=== PATIENT | female | born 1935 | race Caucasian/White ===

== ENCOUNTER 2018-02-20 08:32 | Outpatient (CLI) | payer MEDICARE, OTHER ==
[~2018-02-20] VITALS: Ht 157.5 cm; Wt 51.4 kg
--- NOTE | ~2018-02-20 | HEMODYNAMI ---
PATIENT:JAIRO MORENO MEDICAL RECORD: [id number] : 35 LOCATION:[facility] ADMISSION DATE: 02/20/18 Generatedon:02/20/201810:28 Patient name: JAIRO MORENO Patient #: [id number] SSN: : 1935 Date of study: 02/20/2018 Page: Of Hemodynamic Procedure Report Patient Data Patient Demographics Procedure consent was obtained First Name: JAIRO Gender: Female Last Name: JOSH : 1935 [facility] Initial: MADAN Age: 82 year(s) Patient #: [id number] Race: Unknown Additional ID: [id number] Contact details [address]: [address] [place] [address] State: [place] City: [place] Zip code: [address] Past Medical History Allergies Allergen Reaction Date Comments Reported Codeine 02/20/2018 Amoxicillin 02/20/2018 Penicillins 02/20/2018 Admission Admission Data Admission Date: 02/20/2018 Admission Time: 8:32 Insurance Payor: Medicare Height (in.): 62 BSA: 1.5 (m2) Height (cm.): 157.48 BMI: 20.67 (kg/m2) Weight (lbs.): 113 Weight (kg.): 51.26 Lab Results Lab Result Date: 02/20/2018 Lab Result Time: 0:00 Biochemistry Name Units Result Min Max BUN mg/dl 11 --(-*--)-- 7 18 Creatinine mg/dl 0.9 --(-*--)-- 0.6 1.3 CBC Name Units Result Min Max Hemoglobin g/dl 13.6 --(*---)-- 13.5 17.5 Procedure Procedure Types Cath Procedure Diagnostic Procedure [facility] w/Coronaries PCI Procedure Coronary Stent Coronary Stent Initial Procedure Description Procedure Date Procedure Date: 02/20/2018 Procedure Start Time: 10:01 Procedure End Time: 10:27 Procedure Staff Name Function Teofilo Evans MD Performing Physician Arturo Esqueda RT Monitor Jonelle Falcon RT Scrub Anmol Castro RN Nurse Procedure Data Cath Procedure Fluoroscopy Diagnostic fluoroscopy Total fluoroscopy Time: 9.1 time: 9.1 min min Diagnostic fluoroscopy Total fluoroscopy dose: 480 dose: 480 mGy mGy Contrast Material Contrast Material Type Amount (ml) Isovue 300 117 Entry Location Entry Primary Successful Side Size Upsize Upsize Entry Closure Her ccessful Closure Location (Fr) 1 (Fr) 2 (Fr) Remarks Device Remarks Radial Right 6 Fr Mechanical artery Short Compression Estimated blood loss: 10 ml Diagnostic catheters Device Type Used For End Catheter Placement DIAGNOSTIC [place] 110cm 5 Procedure Fr catheter ([id number]) DIAGNOSTIC AR 2 MOD 5 Fr Procedure catheter ([id number]) Procedure Medications Medication Administration Route Dosage Oxygen etCO2 Nasal cannula 2 l/min Heparin Flush Bag added to field 2 bags (1000units/500ml NS) 0.9% NaCl I.V. 100 ml/hr Radial Cocktail added to field 1 syringe (Verapomil 2mg/Nitro 400mcg/Heparin 1500units) Plavix P.O. 75 mg Fentanyl I.V. 50 mcg Versed I.V. 1 mg Fentanyl I.V. 50 mcg Versed I.V. 1 mg Radial Cocktail I.A. 1 syringe (Verapomil 2mg/Nitro 400mcg/Heparin 1500units) Heparin Bolus I.V. 4000 units Fentanyl I.V. 50 mcg Hemodynamics Rest BSA: 1.5 (m2) HGB: 13.6 (g/dl) O2 Consumption: Estimated: 130.77 (ml/min) O2 Con sumption indexed: Estimated:87.18 (ml/min/m) Heart Rate: 64 (bpm) Pressure Samples Time Site Value (mmHg) Purpose Heart Use Rate(bpm) 10:07 LV 154/13,17 Snapshot 69 Snapshots Pre Cath Intra NCS Post Cath Vital Signs Time Heart Resp SPO2 etCO2 NIBP (mmHg) Rhythm Pain Sedation Rate (ipm) (%) (mmHg) Status Level (bpm) 9:46:14 65 16 100 0 180/75(146) NSR 0 (11) 10(A) , No pain 9:51:40 62 17 100 24.7 178/79(128) NSR 0 (11) 10(A) , No pain 9:56:10 66 17 100 10.5 172/68(123) NSR 0 (11) 10(A) , No pain 10:00:39 64 16 100 12.7 153/61(109) NSR 0 (11) 9(A) , No pain 10:04:59 65 17 100 30.8 127/59(97) NSR 0 (11) 9(A) , No pain 10:09:17 70 16 100 31.5 134/59(96) NSR 0 (11) 9(A) , No pain 10:13:37 71 17 100 31.5 143/64(98) NSR 0 (11) 9(A) , No pain 10:17:57 73 17 100 30 149/73(109) NSR 0 (11) 9(A) , No pain 10:22:15 75 17 100 30 160/76(111) NSR 0 (11) 9(A) , No pain 10:26:35 70 19 100 28.5 154/71(113) NSR 0 (11) 9(A) , No pain Medications Time Medication Route Dose Verified Delivered Reason Not es Effectiveness by by 9:49:47 Oxygen etCO2 2 l/min Teofilo Corea Per physician Nasal Nathan Castro RN cannula 9:49:55 Heparin Flush added 2 bags Teofilo Corea used for Bag to Nathan Castro RN procedure (1000units/500ml field NS) 9:50:04 0.9% NaCl I.V. 100 Teofilozachary Corea Per physician ml/hr Nathan Castro RN 9:50:11 Radial Cocktail added 1 Teofilo Corea used for (Verapomil to syringe Nathan Castro RN procedure 2mg/Nitro field 400mcg/Heparin 1500units) 9:50:23 Plavix P.O. 75 mg Teofilo Corea for Nathan Castro RN antiplatelet therapy 9:56:02 Fentanyl I.V. 50 mcg Teofilo Corea for sedation Nathan Castro RN 9:56:10 Versed I.V. 1 mg Teofilo Chávezy for sedation Nathan Castro RN 9:59:49 Fentanyl I.V. 50 mcg Teofilo Corea for sedation Nathan Castro RN 9:59:52 Versed I.V. 1 mg Teofilo Chávezy for sedation Ntahan Castro RN 10:02:42 Radial Cocktail I.A. 1 Teofilo Teofilo for (Verapomil syringe Nathan Evans MD vasodilation 2mg/Nitro 400mcg/Heparin 1500units) 10:10:31 Heparin Bolus I.V. 4000 Teofilo Corea for units Nathan Castro RN anticoagulation 10:17:54 Fentanyl I.V. 50 mcg Teofilo Corea for sedation Nathan Castro airplane pilot helper Log Time Note 9:22:38 Anmol Castro RN sent for patient. Start room use. 9:31:53 Diagnostic Cath Status : Elective 9:32:39 Time tracking: Regular hours (M-F 7:00 - 5:00) 9:32:43 Plan of Care:Hemodynamics will remain stable., Cardiac rhythm will remain stable., Comfort level will be maintained., Respiratory function will remain adequate., Patient/ family verbilizes understanding of procedure., Procedure tolerated without complication., Recovers from procedure without complications.. 9:36:09 H&P Date Dictated: 02/09/2018 Within 30 days and on chart., H&P Addendum completed by physician on day of procedure. (MUST COMPLETE FOR ALL OUTPATIENTS). 9:39:13 Lab Result : BUN 11 mg/dl 9:39:13 Lab Result : Hemoglobin 13.6 g/dl 9:39:13 Lab Result : Creatinine 0.9 mg/dl 9:39:25 Patient received from Pre/Post Procedure Room to [facility] 3 Alert and oriented. Tansferred to table in Supine position. 9:39:27 Warm blankets applied, and leticia hugger turned on for patient comfort. 9:39:28 Correct patient and procedure confirmed by team. 9:39:31 Signed procedure consent form obtained from patient. 9:44:53 Vital chart was started 9:49:47 Oxygen 2 l/min etCO2 Nasal cannula was administered by Anmol Castro RN; Per physician; 9:49:55 Heparin Flush Bag (1000units/500ml NS) 2 bags added to field was administered by Anmol Castro RN; used for procedure; 9:49:59 Baseline sample Acquired. 9:50:04 0.9% NaCl 100 ml/hr I.V. was administered by Anmol Castro RN; Per physician; 9:50:04 Rhythm: sinus rhythm 9:50:07 Full Disclosure recording started 9:50:11 Radial Cocktail (Verapomil 2mg/Nitro 400mcg/Heparin 1500units) 1 syringe added to field was administered by Anmol Castro RN; used for procedure; 9:50:20 Pre-procedure instructions explained to patient. 9:50:21 Pre-op teaching completed and patient verbalized understanding. 9:50:23 Plavix 75 mg P.O. was administered by Anmol Castro RN; for antiplatelet therapy; 9:50:27 Family in waiting room. 9:50:30 Patient NPO since Midnight. 9:50:43 Patient allergic to Codeine 9:50:48 Patient allergic to Amoxicillin 9:50:54 Patient allergic to Penicillins 9:51:01 Is the patient allergic to Iodine/contrast media? No. 9:51:03 Is patient on blood thinner?Yes 9:51:07 ACC The patient was administered the following blood thiners within the last 24 hours: ACCPlavix 9:51:14 Patient diabetic? No. 9:51:17 Patient not . Patient is over age 55. 9:51:18 ----Pre-sedation anethsthesia assessment.---- 9:51:21 Previous problem with sedation/anesthesia? No ? 9:51:24 Snore? No 9:51:25 Sleep apnea? No 9:51:27 Deviated septum? No 9:51:28 Opens mouth fully? Yes 9:51:29 Sticks out tongue? Yes 9:51:35 Airway obstruction? Yes COPD 9:51:44 Dentures? Yes IN TIGHT 9:51:48 Pre procedure: right dorsailis pedis pulse 2+ Normal; easily identifiable; not easily obliterated 9:51:52 Modified Irineo's test Ulnar < 7 seconds 9:51:55 Patient pain scale 0/10 ?. 9:52:16 IV patent on arrival in left forearm with 0.9% NaCl at O. 9:52:19 Lab results completed and on chart. 9:52:24 Right Radial & Right Groin area was prepped with chlora-prep and draped in sterile fashion 9:52:25 Alarms reviewed by R. N. 9:52:26 Sharps counted by scrub and verified by R.N. 9:52:45 Patient Height : 62 inches 9:52:48 Patient Weight : 113 lbs 9:52:58 Insurance Payor : Medicare 9:55:36 Physician arrived 9:55:38 --------ALL STOP TIME OUT------ 9:55:39 Final Timeout: patient, procedure, and site verified with staff and physician. All members of the team are in agreement. 9:55:44 Right Radial & Right Groin site verified by team. 9:55:47 Physical assessment completed. ASA score P 2 - A patient with mild systemic disease as per Teofilo Evans MD. 9:55:51 Sedation plan: IV Moderate Sedation Medication:Versed, Fentanyl 9:56:02 Fentanyl 50 mcg I.V. was administered by Anmol Castro RN; for sedation; 9:56:08 Use device set Radial Dx or PCI 9:56:10 Versed 1 mg I.V. was administered by Anmol Castro RN; for sedation; 9:56:10 ACIST Syringe (01924) opened to sterile field. 9:56:11 Medline Cath Pack ([id number]) opened to sterile field. 9:56:12 Bag Decanter (2002S) opened to sterile field. 9:56:13 DIAGNOSTIC WIRE .035 260cm J wire (924463) opened to sterile field. 9:56:13 ACIST Hand Control (98177) opened to sterile field. 9:56:14 ACIST Manifold (29083) opened to sterile field. 9:56:15 Tegaderm 4 x 4 (1626W) opened to sterile field. 9:56:16 MBrace Wrist Support ([id number]) opened to sterile field. 9:56:20 TR BAND Standard ([id number]) opened to sterile field. 9:56:23 SHEATH 6Fr Prelude Radial ([id number]) opened to sterile field. 9:59:49 Fentanyl 50 mcg I.V. was administered by Anmol Castro RN; for sedation; 9:59:52 Versed 1 mg I.V. was administered by Anmol Castro RN; for sedation; 10:01:14 Procedure started. 10:01:21 Local anesthetic to right radial artery with Lidocaine 2% by Teofilo Evans MD.INITIAL ACCESS ONLY 10:02:15 A 6 Fr Short sheath was inserted into the Right Radial artery 10:02:41 TEGADERM APPLIED 10:02:42 Radial Cocktail (Verapomil 2mg/Nitro 400mcg/Heparin 1500units) 1 syringe I.A. was administered by Teofilo Evans MD; for vasodilation; 10:03:13 A DIAGNOSTIC [place] 110cm 5 Fr catheter ([id number]) was advanced over the wire and used for Procedure. 10:04:02 LCA angiography performed. 10:06:15 Zero performed for pressure channel P1 10:06:17 Zero performed for pressure channel P1 10:06:20 Zero performed for pressure channel P1 10:06:22 Zero performed for pressure channel P1 10:06:24 Zero performed for pressure channel P1 10::27 Zero performed for pressure channel P1 10:06:30 Zero performed for pressure channel P1 10:06:59 Zero performed for pressure channel P1 10:07:25 LV gram done using MURCIA 10:07:35 EF : 55 % 10:07:38 LV hemodynamics recorded. 10:07:40 Catheter removed. 10:08:04 A DIAGNOSTIC AR 2 MOD 5 Fr catheter ([id number]) was advanced over the wire and used for Procedure. 10:08:47 RCA angiography performed. 10:09:02 GUIDE 6FR AR 1.0 SH catheter ([id number]) opened to sterile field. 10:09:05 CHOICE PT Extra Support 182cm wire ([id number]) opened to sterile field. 10:09:06 INFLATOR Merit BasixCompak (QO0738) opened to sterile field. 10:09:16 Catheter removed. 10:09:17 Proceeding to intervention. 10:09:48 RCA 10:09:58 6 Fr AR 1 SH guide catheter was inserted over the wire 10:10:31 Heparin Bolus 4000 units I.V. was administered by Anmol Castro RN; for anticoagulation; 10:11:23 Guide Catheter removed. unable to cannulate vessel. 10:11:40 GUIDE 6FR HS I SH catheter ([id number]) opened to sterile field. 10:12:03 6 Fr HS 1 SH guide catheter was inserted over the wire 10:12:43 CHOICE wire advanced. 10:13:20 Wire advanced across lesion. 10:14:50 Inflate balloon Inflation number: 1 A EUPHORA 2.5 x 20 Balloon ([id number]) was prepped and advanced across the Dist RCA, then inflated to 13 ALAN for 0:10 (min:sec). 10:15:03 MULTIPLE INFLATIONS WHOLE VESSEL 10:16:09 Inflation number: 1 The EUPHORA 2.5 x 20 Balloon ([id number]) was reinflated across the Prox RCA, to 17 ALAN for 0:10 (min:sec). 10:16:26 Balloon removed over the wire. 10:16:52 Procedure type changed to Cath procedure, Diagnostic procedure, LHC, LHC w/Coronaries, PCI procedure, Coronary Stent, Coronary Stent Initial 10:17:43 Place stent Inflation Number: 2 A ANNI RX 2.5 x 38 stent ([id number]) was prepped and advanced across the Dist RCA. The stent was deployed at 17 ALAN for 0:10 (min:sec). 10:17:54 Fentanyl 50 mcg I.V. was administered by Anmol Castro RN; for sedation; 10:18:12 Stent catheter was removed intact over wire. 10:19:53 Place stent Inflation Number: 2 A ANNI RX 2.5 x 34 stent ([id number]) was prepped and advanced across the Prox RCA. The stent was deployed at 19 ALAN for 0:10 (min:sec). 10:20:20 Stent catheter was removed intact over wire. 10:20:20 Wire removed. 10:20:22 Guide catheter removed. 10:20:40 Sheath removed intact; hemostasis achieved with Mechanical Compression to the Right Radial artery. 10:20:45 Procedure ended.(Physican Out) 10:20:54 Fluoroscopy time 09.10 minutes. 10:23:41 Fluoroscopy dose: 480 mGy 10:23:41 Flurop Dose total: 480 10:23:52 Contrast amount:Isovue 300 117ml. 10:23:57 Sharps counted by scrub and verified by R.N. 10:24:42 TR band inflated with 13cc of air. 10:24:44 Insertion/operative site no bleeding no hematoma. 10:24:49 Post right radial artery:stable 10:24:52 Post Procedure Pulses reassessed and unchanged 10:24:56 Post-procedure physical assessment completed. ASA score P 2 - A patient with mild systemic disease as per Teofilo Evans MD. 10:25:03 Post procedure rhythm: sinus rhythm 10:25:06 Estimated blood loss: 10 ml 10:25:09 Post procedure instruction explained to patient.Patient verbalizes understanding. 10:25:10 Patient needs reinforcement of post procedure teaching. 10:25:45 Procedure and supply charges have been captured, reviewed, submitted and are correct. 10:27:13 Vital chart was stopped 10:27:14 See physician's report for complete and final results. 10:27:21 Report given to Pre/Post Procedure Room. 10:27:26 Patient transfered to Pre/Post Procedure Room with Stretcher. 10:27:47 Procedure ended. 10:27:47 Full Disclosure recording stopped 10:27:53 End room use (Document Last) Intervention Summary Intervention Notes Time ActionType Lesion and Equipment Used Action# Pressure Duration Attributes 10:14:50 Inflate Dist RCA EUPHORA 2.5 x 1 13 00:10 balloon 20 Balloon ([id number]) 10:16:09 Reinflate Prox RCA EUPHORA 2.5 x 1 17 00:10 balloon 20 Balloon ([id number]) 10:17:43 Place stent Dist RCA ANNI RX 2.5 x 2 17 00:10 38 stent ([id number]) 10:19:53 Place stent Prox RCA ANNI RX 2.5 x 2 19 00:10 34 stent ([id number]) Device Usage Item Name Manufacture Quantity Catalog Number Hospital Part Current Minimal Lot# / Charge Number Stock Stock Serial# Code ACIST Syringe Acist 1 26450 893886 082516 582515 20 (19857) Medical Systems Inc Medline Cath Cardinal 1 [id number] 391102 14728 404863 5 Pack Health ([id number]) Bag Decanter Microtek 1 2001S 822855 39972 075112 5 () Medical Inc. DIAGNOSTIC WIRE St Jeff 1 877291 113864 699105 001933 30 .035 260cm J wire (724237) ACIST Hand Acist 1 73392 637023 590569 482116 5 Control (28009) [employer] Systems Inc ACIST Manifold Acist 1 77527 720718 770270 574797 5 (68387) Medical Systems Inc Tegaderm 4 x 4 3M 1 1626W 655971 399715 241180 5 (1626W) MBrace Wrist Advanced 1 140-0250-00 197883 18648 411610 5 Support Vascular (201518919) Dynamics TR BAND Terumo 1 HGQ51-AAT 642745 861939 497101 40 Standard ([id number]) SHEATH 6Fr Merit 1 [id number] 389429 010444 752405 5 Prelude Radial Medical ([id number]) DIAGNOSTIC Terumo 1 40-5013 599515 592223 827245 5 [place] 110cm 5 Fr catheter (172652) DIAGNOSTIC AR 2 Cardinal 1 [id number] 005112 331255 039308 20 MOD 5 Fr Health catheter (441902P) GUIDE 6FR AR Medtronic 1 [id number] 944967 22554 936783 1 1.0 SH catheter ([id number]) CHOICE PT Extra [place] 1 [id number] 082996 399120 338492 5 Support 182cm Scientific wire ([id number]) INFLATOR Merit Merit 1 KV1015 798726 393902 973997 15 BasixCompak Medical (DY6962) GUIDE 6FR HS I Medtronic 1 [id number] 614875 87256 610105 1 SH catheter ([id number]) EUPHORA 2.5 x Medtronic 1 [id number] 123206 109087 122384 5 [id number] 20 Balloon ([id number]) ANNI RX 2.5 x Medtronic 1 [id number] 654590 8200126 037814 5 [id number] 38 stent ([id number]) ANNI RX 2.5 x Medtronic 1 [id number] 531752 0380471 788645 5 [id number] 34 stent ([id number]) Signature Audit [place] Stage Time Signature Unsigned Intra-Procedure 02/20/2018 Arturo Esqueda 10:28:19 AM RT(R) (CV) Signatures Monitor : Arturo Esqueda RT Signature : Date : Time : [facility] [address] [place] [address]
--- NOTE | ~2018-02-20 | OP ---
PATIENT NAME: JAIRO MORENO MEDICAL RECORD: [id number] :35 LOCATION:D.CAT ADMISSION DATE: SURGEON: NORMA CARDOZO MD DATE OF OPERATION: 02/20/2018 PROCEDURES: 1. PTCA stent RCA. 2. Left heart catheterization. 3. Selective coronary angiography. 4. Left ventriculogram. INDICATION: Angina and coronary artery disease. PROCEDURE IN DETAIL: After informed consent was obtained and after a detailed description of the risks, benefits as well as alternative therapies, the patient elected to proceed with angiogram and angioplasty. The right radial area was prepped and draped in normal sterile fashion. Right radial artery was cannulated via modified Seldinger technique with placement of 6-Latvian sheath. All catheters exchanged through this sheath. FINDINGS: Left ventriculogram was performed in standard 30-degree MURCIA view, reveals good cardiac wall motion throughout all segments. Overall ejection fraction 55% to 60%. SELECTIVE CORONARY ANGIOGRAPHY: 1. Left main is with no significant angiographic disease. 2. Left anterior descending has greater than 70% stenosis proximally greater than 80% stenosis in the mid vessel. 3. The left circumflex has wexy-ir-qareonux irregularities, but no discrete flow-limiting stenosis. 4. The right coronary artery has multiple areas of 90% to 95% stenosis. MOTORBOAT MECHANIC INBOARD STENT OF THE RIGHT CORONARY ARTERY: Stents used were 2.5 x 38 and 2.5 x34, both Lm stents. Result was 0% residual stenosis. OVERALL IMPRESSION: Successful percutaneous transluminal coronary angioplasty stent of the right coronary artery going from multiple areas of 90% to 95% initial stenosis to 0% residual. PLAN: PTCA stent of the LAD in the near future. TRANSINT:[id number] Voice Confirmation ID: [id number] DOCUMENT ID: [id number] NORMA CARDOZO MD at 1230 CC: [id number] DICTATION DATE: 02/20/18 1030 [place] OPERATOR: 02/20/18 1121 DEP CLI 02/20/18 [place] [id number]
[2018-02-20] MEDS ORDERED: CREON (PANCRELI1 CAP PO (08:48)
[2018-02-20] MEDS ORDERED: ISOSORBIDE MONO30 M1 PO (08:49)
[2018-02-20] MEDS ORDERED: PLAVIX75 MG PO ×3 (08:49→10:45)
[2018-02-20] MEDS ORDERED: NORVASC5 MG PO (08:50)
[2018-02-20] MEDS ORDERED: COREG6.25 MG PO (08:50)
[2018-02-20] MEDS ORDERED: HYDROCODONE-APA1 TAB PO (08:51)
[2018-02-20] MEDS ORDERED: OMEPRAZOLE20 M1 PO (08:52)
[2018-02-20] MEDS ORDERED: BAYER CHEWABLE81 MG PO (08:53)
[2018-02-20] MEDS ORDERED: TRAZODONE HCL50 MG PO (08:54)
[2018-02-20 09:05] VITALS: BP 183/66; Ht 157.5 cm; Wt 51.4 kg
[2018-02-20 09:16] LABS: BASOPHILS 0.4 % (0-2); HEMATOCRIT 40.2 % (36.0-48.0); HEMOGLOBIN 13.6 g/dL (12-16); IMMATURE GRANULOCYTES 0.1 % (0-5); LYMPHOCYTES 28.8 % (15-50); MCHC 33.8 g/dL (31.0-37.0); MCV 91.6 fL (80.0-100.0); MEAN PLATELET VOLUME 9.1 fL (7.4-10.4); MONOCYTES 10.3 % (2-11); NEUTROPHILS 57.4 % (40-80); PLATELET COUNT 270 10x3/uL (130-400); RBC 4.39 10x6/uL (4.00-5.40); RDW 15.4 % (11.5-14.5)
[2018-02-20 09:26] LABS: ANION GAP 10.9 mmol/L (8-16); CALCIUM 9.7 mg/dL (8.5-10.1); CARBON DIOXIDE 27.1 mmol/L (21.0-32.0); CREATININE - SERUM 0.9 mg/dL (0.6-1.3)
== END 2018-02-20 14:45 ==
LOC: D.CATH 08:32
PROVIDERS: Internal Medicine Interventional Cardiology
DX: I25.119 Atherosclerotic heart disease of native coronary artery with unspecified angina pectoris (principal); Z01.812 Encounter for preprocedural laboratory examination
CPT/HCPCS: 93458; C9600

== ENCOUNTER 2018-02-27 08:10 | Outpatient (CLI) | payer MEDICARE, OTHER ==
[~2018-02-27] VITALS: Ht 157.5 cm; Wt 50.0 kg
--- NOTE | ~2018-02-27 | HEMODYNAMI ---
PATIENT:JAIRO MORENO MEDICAL RECORD: [id number] : 35 [id number] ADMISSION DATE: 02/27/18 Generatedon:02/28/201812:42 Patient name: JAIRO MORENO Patient #: [id number] SSN: : 1935 Date of study: 02/28/2018 Page: Of Hemodynamic Procedure Report Patient Data Patient Demographics Procedure consent was obtained First Name: JAIRO Gender: Female Last Name: JOSH : 1935 Middle Initial: MADAN Age: 82 year(s) Patient #: [id number] Race: Unknown Additional ID: [id number] Contact details [address]: [address] [place] [address] State: [place] City: [place] Zip code: [address] Past Medical History Allergies Allergen Reaction Date Comments Reported Codeine 02/20/2018 Amoxicillin 02/20/2018 Penicillins 02/20/2018 Other allergy 02/27/2018 AMOXICILLIN, CODEINE, PCN Other allergy 02/28/2018 Codeine. PCN, Amoxicillin Admission Admission Data Admission Date: 02/27/2018 Admission Time: 8:10 Room #: [facility] Height (in.): 5.2 BSA: 0.25 (m2) Height (cm.): 13.21 BMI: 2938.12 (kg/m2) Weight (lbs.): 113 Weight (kg.): 51.26 Lab Results Lab Result Date: 02/28/2018 Lab Result Time: 0:00 Biochemistry Name Units Result Min Max BUN mg/dl 11 --(-*--)-- 7 18 Creatinine mg/dl 0.7 --(*---)-- 0.6 1.3 CBC Name Units Result Min Max Hemoglobin g/dl 13.5 --(*---)-- 13.5 17.5 Procedure Procedure Types Cath Procedure Diagnostic Procedure Sedation Charges Moderate Sedation up to 15 minutes PCI Procedure Coronary Stent Coronary Stent Initial Procedure Description Procedure Date Procedure Date: 02/28/2018 Procedure Start Time: 12:15 Procedure End Time: 12:36 Procedure Staff Name Function Teofilo Evans MD Performing Physician Faviola Mccracken RT Monitor Hui Lopez RT Scrub Alma Rosa Garcia RN Nurse Procedure Data Cath Procedure Fluoroscopy Diagnostic fluoroscopy Total fluoroscopy Time: time: 10.7 min 10.7 min Diagnostic fluoroscopy Total fluoroscopy dose: 794 dose: 794 mGy mGy Contrast Material Contrast Material Type Amount (ml) Isovue 300 62 Entry Location Entry Primary Successful Side Size Upsize Upsize Entry Closure Succes sful Closure Location (Fr) 1 (Fr) 2 (Fr) Remarks Device Remarks Femoral Right 6 Fr Exoseal artery Short Estimated blood loss: 10 ml Procedure Complications No complications Procedure Medications Medication Administration Route Dosage Oxygen NC 2 l/min Lidocaine 2% added to field 20 Heparin Flush Bag added to field 2 bags (1000units/500ml NS) 0.9% NaCl I.V. 100 ml/hr Versed I.V. 1 mg Fentanyl I.V. 50 mcg Heparin Bolus I.V. 4000 units Versed I.V. 1 mg Fentanyl I.V. 50 mcg Versed I.V. 1 mg Fentanyl I.V. 50 mcg Plavix P.O. 75 mg Hemodynamics Rest BSA: 0.25 (m2) HGB: 13.5 (g/dl) O2 Consumption: Estimated: 22.04 (ml/min) O2 Con sumption indexed: Estimated:88.16 (ml/min/m) Heart Rate: 67 (bpm) Snapshots Pre Cath Intra NCS Post Cath Vital Signs Time Heart Resp SPO2 etCO2 NIBP (mmHg) Rhythm Pain Sedation Rate (ipm) (%) (mmHg) Status Level (bpm) 12:00:36 64 18 99 27.7 175/77(125) NSR 0 (11) 10(A) , No pain 12:07:38 63 21 98 25.5 170/65(131) NSR 0 (11) 10(A) , No pain 12:12:06 62 16 96 0 133/63(107) NSR 0 (11) 10(A) , No pain 12:17:32 61 15 98 29.2 152/64(118) NSR 0 (11) 10(A) , No pain 12:21:54 61 12 98 27.7 138/62(109) NSR 0 (11) 9(A) , No pain 12:26:12 60 17 98 27.7 131/54(105) NSR 0 (11) 9(A) , No pain 12:30:26 61 15 98 28.5 138/60(107) NSR 0 (11) 9(A) , No pain 12:34:38 65 20 98 30 153/70(120) NSR 0 (11) 10(A) , No pain Medications Time Medication Route Dose Verified Delivered Reason Notes Effectiveness by by 11:54:43 Oxygen NC 2 Teofilo Buffie used for l/min Nathan Garcia RN procedure 11:54:51 Lidocaine 2% added 20ml Teofilo Teofilo for local to vial Nathan Evans MD anesthetic field 11:54:58 Heparin Flush added 2 Teofilo Teofilo used for Bag to bags Nathan Evans MD procedure (1000units/500ml field NS) 11:55:07 0.9% NaCl I.V. 100 Teofilo Buffie Per physician ml/hr Nathan Garcia RN 12:15:01 Fentanyl I.V. 50 Teofilo Buffie for sedation mcg Nathan Garcia RN 12:15:01 Versed I.V. 1 mg Teofilo Buffie for sedation Nathan Garcia RN 12:15:53 Heparin Bolus I.V. 4000 Teofilo Buffie for verifi ed units Nathan Garcia RN anticoagulation with dr evans 12:18:23 Versed I.V. 1 mg Teofilo Buffie for sedation Nathan Garcia RN 12:18:26 Fentanyl I.V. 50 Teofilo Buffie for sedation mcg Nathan Garcia RN 12:28:53 Versed I.V. 1 mg Teofilo Buffie for sedation Nathan Garcia RN 12:28:57 Fentanyl I.V. 50 Teofilo Buffie for sedation mcg Nathan Garcia RN 12:35:40 Plavix P.O. 75 mg Teofilo Hiltonie for Nathan Garcia RN antiplatelet therapy Procedure Log Time Note 11:31:49 Signed procedure consent form obtained from patient. 11:31:51 Time tracking: Regular hours (M-F 7:00 - 5:00) 11:31:54 Plan of Care:Hemodynamics will remain stable., Cardiac rhythm will remain stable., Comfort level will be maintained., Respiratory function will remain adequate., Patient/ family verbilizes understanding of procedure., Procedure tolerated without complication., Recovers from procedure without complications.. 11::56 Patient Height : 5.2 inches 11::56 Patient Weight : 113 lbs 11:33:07 Lab Result : Creatinine 0.7 mg/dl 11:33:07 Lab Result : BUN 11 mg/dl 11:33:07 Lab Result : Hemoglobin 13.5 g/dl 11:38:03 Alma Rosa Garcia RN sent for patient. Start room use. 11:46:35 Patient received from Med II to CCL 2 Alert and oriented. Tansferred to table in Supine position. 11:46:36 Warm blankets applied, and leticia hugger turned on for patient comfort. 11:46:36 Correct patient and procedure confirmed by team. 11:46:38 ECG and BP/O2 sat monitors applied to patient. 11:54:43 Oxygen 2 l/min NC was administered by Alma Rosa Garcia RN; used for procedure; 11:54:51 Lidocaine 2% 20ml vial added to field was administered by Teofilo Evans MD; for local anesthetic; 11:54:58 Heparin Flush Bag (1000units/500ml NS) 2 bags added to field was administered by Teofilo Evans MD; used for procedure; 11:55:07 0.9% NaCl 100 ml/hr I.V. was administered by Alma Rosa Garcia RN; Per physician; 11:55:12 Vital chart was started 11:56:13 Baseline sample Acquired. 11:56:20 Full Disclosure recording started 11:56:26 H&P Date Dictated: 02/28/2018 Within 30 days and on chart.. 11:56:28 Pre-procedure instructions explained to patient. 11:56:34 Family in waiting room. 11:56:36 Patient NPO since Midnight. 11:57:08 Patient allergic to Other allergyCodeine. PCN, Amoxicillin 11:57:12 Was the patient premedicated? Yes 11:57:16 Is patient on blood thinner?Yes 11:57:23 ACC The patient was administered the following blood thiners within the last 24 hours: ACCPlavix 11:57:33 Patient diabetic? No. 11:57:36 If diabetic: On Metformin? No 11:57:41 Snore? No 11:57:42 Sleep apnea? No 11:57:48 Airway obstruction? Yes COPD 11:57:56 Dentures? Yes in tight 11:58:01 Patient pain scale 0/10 ?. 11:58:08 IV patent on arrival in left hand with 0.9% NaCl at [facility]. 11:58:15 Lab results completed and on chart. 11:58:19 Right groin area was prepped with chlora-prep and draped in sterile fashion 11:58:20 Alarms reviewed by R. N. 11:58:21 Sharps counted by scrub and verified by R.N. 11:58:22 Physician paged 12:05:19 Zero performed for pressure channel P1 12:05:27 Zero performed for pressure channel P1 12:08:50 GUIDE 6FR XBLAD 3.5 catheter ([id number]) opened to sterile field. 12:09:01 Use device set TAUTH PCI 12:09:09 INFLATOR Merit BasixCompak (XN4177) opened to sterile field. 12:09:31 CHOICE PT Extra Support 182cm wire ([id number]) opened to sterile field. 12:09:41 EXOSEAL 6Fr (EX600) opened to sterile field. 12:09:46 SHEATH Prelude 6Fr 0.035 (NTR-2L-38-035) opened to sterile field. 12:09:53 Use device set IR Diagnostic 12:10:01 ACIST Syringe (90821) opened to sterile field. 12:10:02 ACIST Hand Control (89809) opened to sterile field. 12:10:03 ACIST Manifold (22546) opened to sterile field. 12:10:06 Bag Decanter (2002S) opened to sterile field. 12:10:09 Sterile Angiographic Pack opened to sterile field. 12:10:11 Tegaderm 4 x 4 (1626W) opened to sterile field. 12:14:56 Physician arrived 12::57 --------ALL STOP TIME OUT------ 12:14:58 Final Timeout: patient, procedure, and site verified with staff and physician. All members of the team are in agreement. 12:14:59 Right groin site verified by team. 12:15:01 Fentanyl 50 mcg I.V. was administered by Alma Rosa Garcia RN; for sedation; 12:15:01 Versed 1 mg I.V. was administered by Alma Rosa Garcia RN; for sedation; 12:15:06 Sedation plan: IV Moderate Sedation Medication:Versed, Fentanyl 12:15:12 Procedure started. 12:15:24 Local anesthetic to right femoral artery with Lidocaine 2% by Teofilo Evans MD.INITIAL ACCESS ONLY 12:15:32 A 6 Fr Short sheath was inserted into the Right Femoral artery 12:15:53 Heparin Bolus 4000 units I.V. was administered by Alma Rosa Garcia RN; for anticoagulation; verified with dr evans 12:17:15 6 Fr XBLAD3.5 guide catheter was inserted over the wire 12:17:23 pt graphics wire advanced. 12:18:23 Versed 1 mg I.V. was administered by Alma Rosa Garcia RN; for sedation; 12:18:26 Fentanyl 50 mcg I.V. was administered by Alma Rosa Garcia RN; for sedation; 12:18:42 CHOICE PT Extra Support J 300cm guide wire ([id number]) opened to sterile field. 12:23:44 unable to cross with wire and stent. Super cross advanced 12:23:49 WHISPER 300cm guide wire ([id number]) opened to sterile field. 12:28:53 Versed 1 mg I.V. was administered by Alma Rosa Garcia RN; for sedation; 12:28:57 Fentanyl 50 mcg I.V. was administered by Alma Rosa Garcia RN; for sedation; 12:32:08 Super Cross removed 12:33:13 Place stent Inflation Number: 1 A ANNI OTW 2.25 x 22 stent ([id number]) was prepped and advanced across the Mid LAD. The stent was deployed at 19 ALAN for 0:08 (min:sec). 12:33:58 Wire removed. 12:33:59 Guide catheter removed. 12:34:08 Sheath removed intact; hemostasis achieved with Exoseal to the Right Femoral artery. 12:34:14 Procedure ended.(Physican Out) ::34 Fluoroscopy dose: 794 mGy 12::34 Flurop Dose total: 794 12:34:43 Fluoroscopy time 10.70 minutes. 12:34:56 Contrast amount:Isovue 300 62ml. 12:35:10 Insertion/operative site no bleeding no hematoma. 12:35:15 Post right femoral artery:stable 12:35:20 Post Procedure Pulses reassessed and unchanged 12:35:29 Post procedure rhythm: unchanged. 12:35:32 Estimated blood loss: 10 ml 12:35:34 Post procedure instruction explained to patient.Patient verbalizes understanding. 12:35:40 Plavix 75 mg P.O. was administered by Alma Rosa Garcia RN; for antiplatelet therapy; 12:35:48 Patient needs reinforcement of post procedure teaching. 12:36:01 Procedure type changed to Cath procedure, Diagnostic procedure, Sedation Charges, Moderate Sedation up to 15 minutes, PCI procedure, Coronary Stent, Coronary Stent Initial 12:36:02 Procedure and supply charges have been captured, reviewed, submitted and are correct. 12:36:33 Procedure Complication : No complications 12:36:36 Vital chart was stopped 12:36:36 See physician's report for complete and final results. 12:36:39 Report given to Pre/Post Procedure Room. 12:36:42 Patient transfered to Pre/Post Procedure Room with Stretcher. 12:36:45 Procedure ended. 12:36:45 Full Disclosure recording stopped 12:36:48 End room use (Document Last) 12:37:35 ACC-PCI Only Patient was given prescriptions, or instructed by Teofilo Evans MD to start/continue the following medications upon discharge: Plavix Intervention Summary Intervention Notes Time ActionType Lesion and Equipment Action# Pressure Duration Attributes Used 12:33:13 Place stent Mid LAD ANNI OTW 2.25 1 19 00:08 x 22 stent ([id number]) Device Usage Item Name Manufacture Quantity Catalog Number Hospital Part Current Minimal Lot# / Charge Number Stock Stock Serial# Code GUIDE 6FR XBLAD Cardinal 1 [id number] 679405 591886 505668 10 3.5 catheter [employer] ([id number]) INFLATOR Merit Merit 1 [id number] 791335 072839 782755 15 Razor Insights (DL6743) CHOICE PT Extra Friendship 1 [id number] 364931 426694 798732 5 Support 182cm Scientific wire (2689555S5) EXOSEAL 6Fr Cardinal 1 EX600 537967 119390 317639 10 (EX600) Health SHEATH Prelude Merit 1 KDX-3Y-34-35 808570 6994509 225040 5 6Fr 0.035 Medical (FLE-0M-95-035) ACIST Syringe Acist 1 20131 076009 096403 110380 20 (29752) Medical Systems Inc ACIST Hand Acist 1 87039 287947 045272 706411 5 Control (25603) Medical Systems Inc ACIST Manifold Acist 1 84562 260190 908825 857762 5 (64545) Medical Systems Inc Bag Decanter Microtek 1 2002S 955935 64019 557556 5 (2001S) Medical Inc. Sterile Cardinal 1 [id number] 105367 996444 5 Angiographic Health Pack Tegaderm 4 x 4 3M 1 1626W 512075 992630 007562 5 (1626W) CHOICE PT Extra Friendship 1 [id number] 025273 304291 790476 5 Support J 300cm Scientific guide wire (6971205R6) WHISPER 300cm Diamond 1 [id number] 974438 787025 734420 5 guide wire Vascular (2666528CH) ANNI OTW 2.25 x Medtronic 1 [id number] 295764 13797 691151 5 [id number] 22 stent ([id number]) Signature Audit [place] Stage Time Signature Unsigned Intra-Procedure 02/28/2018 Hui Lopez 12:41:55 PM RT(R) Signatures Monitor : Faviola Mccracken Signature : RT Date : Time : [address] [address]
--- NOTE | ~2018-02-27 | OP ---
PATIENT NAME: JAIRO MORENO MEDICAL RECORD: [id number] :35 LOCATION:D.CAT ADMISSION DATE: SURGEON: NORMA CARDOZO MD DATE OF OPERATION: 02/27/2018 PROCEDURES: 1. PTCA stent left circumflex. 2. Intravascular ultrasound, left circumflex. 3. Intravascular ultrasound, left main. 4. Selective coronary angiography. INDICATION: Angina and coronary artery disease. PROCEDURE IN DETAIL: After informed consent was obtained and after detailed explanation of risks, benefits as well as alternative therapies, the patient elected to proceed with angiogram and angioplasty. The right radial area was prepped and draped in normal sterile fashion. Right radial artery was cannulated via modified Seldinger technique with placement of 6-Greek sheath. All catheters exchanged through this sheath. FINDINGS: The left circumflex has 75% stenosis confirmed by intravascular ultrasound. The left main is not significantly stenosed confirmed by intravascular ultrasound. We addressed the left circumflex with a 3.5 x 12 mm [place]. Result was 0% residual stenosis. OVERALL IMPRESSION: Successful percutaneous transluminal coronary angioplasty stent of the left circumflex going from 75% initial stenosis to 0% residual stenosis. TRANSINT:[id number] Voice Confirmation ID: [id number] DOCUMENT ID: [id number] NORMA CARDOZO MD at 1325 CC: [id number] DICTATION DATE: 02/27/18 1013 TATTOO AND BODY ARTIST: 02/27/18 1128 [facility] CLI 02/28/18 [place] [address]
--- NOTE | ~2018-02-27 | DS ---
PATIENT:AJIRO MORENO :35 MEDICAL RECORD: [id number] DISCHARGE SUMMARY ADMISSION DATE: 02/27/18 DISCHARGE DATE: 02/28/18 DISCHARGE DIAGNOSES: 1. Angina. 2. Coronary artery disease. 3. Percutaneous transluminal coronary angioplasty stent left anterior descending and left circumflex this admission. HOSPITAL COURSE: Ms. Moreno presents with anginal symptomatology, found to have 2-vessel coronary artery disease of the LAD and circumflex, underwent successful PTCA stent of both territories, was discharged home with no change in her medications as she is already on aspirin and Plavix. She will follow up with [facility] in 1 month. TRANSINT:[id number] Voice Confirmation ID: [id number] DOCUMENT ID: [id number] NORMA CARDOZO MD at 1325 CC: [id number] DICTATION DATE: 02/28/18 1237 SPA DIRECTOR/FINANCE: 02/28/18 1251 [facility]P CLI 02/28/18 [place] [address] [place] [address]
--- NOTE | ~2018-02-27 | HP ---
PATIENT: JAIRO MORENO MEDICAL RECORD: [id number] ACCOUNT: [id number] LOCATION:[facility] : 35 ADMISSION DATE: 02/27/18 HISTORY AND PHYSICAL EXAMINATION ADMITTING DIAGNOSES: 1. Anginal symptomatology. 2. Coronary artery disease. 3. Recent percutaneous transluminal coronary angioplasty and stent of the right coronary artery with concomitant disease to the left anterior descending. HISTORY OF PRESENT ILLNESS: Ms. Moreno presents with anginal symptomatology, found to have significant disease to the RCA and LAD, underwent successful PTCA and stent of the RCA, now brought back for PTCA and stent of the LAD. PHYSICAL EXAMINATION: GENERAL APPEARANCE: Well nourished, well developed, appears stated age. Level of distress, comfortable. PSYCHIATRIC: Mental status, alert, normal affect. Orientation, oriented to time, place and person. EYES: Lids and conjunctivae, noninjected. No discharge, no pallor. ENT: Lips, teeth, gums, normal dentition. Oropharynx, no cyanosis, no pallor. NECK: Carotid arteries, bilateral normal upstroke, no bruits, no thrills. JUGULAR VEINS: No jugular venous pressure or distention. CERVICAL LYMPH NODES: Nontender, nonenlarged. THYROID: Not enlarged. Nontender. No nodules. LUNGS: Respiratory effort, unlabored. CHEST: Normal curvature. No thoracic deformity. No chest wall tenderness. Percussion, resonant. Auscultation, clear. No wheezes, no rales, no rhonchi. CARDIOVASCULAR: Precordial exam, nondisplaced. No heaves or pericardial thrills. Rate and rhythm, regular. Heart sounds, normal S1, normal S2. No S3, no gallop, no rub. Systolic murmur, not heard. Diastolic murmur, not heard. EXTREMITIES: No cyanosis, no edema. Peripheral pulses, full and equal in all extremities, except as noted. No bruits appreciated. ABDOMEN: Soft, nondistended. Normal aorta. No bruit. Nontender. No masses. Liver, nontender, no hepatomegaly. Spleen, nontender, no splenomegaly. MUSCULOSKELETAL: No joint tenderness. No joint swelling. No erythema. NEUROLOGICAL: Normal gait, normal strength, normal tone. SKIN: Warm and dry. REVIEW OF SYSTEMS: The patient reports easy bruising but reports no swollen glands. The patient reports no fever, no night sweats, no significant weight gain, no significant weight loss. No significant exercise tolerance. The patient reports no dry eyes, no irritation, no vision change. Patient reports no difficulty hearing and no ear pain. Patient reports no frequent nose bleeds or nose and sinus problems. Patient reports on arm pain on exertion. No shortness of breath while lying down. No history of heart murmur. Patient reports no cough, no wheezing or coughing up blood. Patient reports no abdominal pain, no vomiting. Normal appetite. No diarrhea and not vomiting blood. No nausea and no constipation. Patient reports no incontinence. No difficulty urinating. No hematuria. No increased frequency. Patient reports no muscle aches. No weakness, no arthralgias, no back pain. No swelling of the extremities. Patient reports no abnormal mole, no jaundice, no rashes. Reports no loss of consciousness. No weakness and no numbness. No seizures, dizziness, or headaches. The patient reports no depression, no sleep disturbance, feeling HISTORY AND PHYSICAL [id number] JOSH,JAIRO HAGER safe in a relationship and no alcohol abuse. Patient reports on fatigue. Reports no runny nose or sinus pressure. No itching, no hives, and no frequent sneezing. OVERALL IMPRESSION: Anginal symptomatology with significant disease of the left anterior descending. We will proceed with percutaneous transluminal coronary angioplasty and stent of the left anterior descending. TRANSINT:[id number] Voice Confirmation ID: [id number] DOCUMENT ID: [id number] NORMA CARDOZO MD at 1325 CC: [id number] DICTATION DATE: 02/27/18 09 FOSTER CARE CASE MANAGER: 02/27/18 1030 DEP CLI 02/28/18 [place] [id number] [place] [id number]
--- NOTE | ~2018-02-27 | HEMODYNAMI ---
PATIENT:JAIRO MORENO MEDICAL RECORD: [id number] : 35 LOCATION:[facility] ADMISSION DATE: 02/27/18 Generatedon:02/27/201810:13 Patient name: JAIRO MORENO Patient #: [id number] SSN: : 1935 Date of study: 02/27/2018 Page: Of Hemodynamic Procedure Report Patient Data Patient Demographics Procedure consent was obtained First Name: JAIRO Gender: Female Last Name: JOSH : 1935 [facility] Initial: MADAN Age: 82 year(s) Patient #: [id number] Race: Unknown Additional ID: [id number] Contact details [address]: [address] [place] [address] State: [place] City: [place] Zip code: [address] Past Medical History Allergies Allergen Reaction Date Comments Reported Codeine 02/20/2018 Amoxicillin 02/20/2018 Penicillins 02/20/2018 Other allergy 02/27/2018 AMOXICILLIN, CODEINE, PCN Admission Admission Data Admission Date: 02/27/2018 Admission Time: 8:10 Height (in.): 5.2 BSA: 0.25 (m2) Height (cm.): 13.21 BMI: 2938.12 (kg/m2) Weight (lbs.): 113 Weight (kg.): 51.26 Procedure Procedure Types Cath Procedure Diagnostic Procedure FFR/IVUS Intra-Coronary IVUS Initial Intra-Coronary IVUS Additional PCI Procedure Coronary Stent Coronary Stent Initial Procedure Description Procedure Date Procedure Date: 02/27/2018 Procedure Start Time: 9:58 Procedure End Time: 10:10 Procedure Staff Name Function Teofilo Evans MD Performing Physician Hui Lopez RT Scrub Alma Rosa Garcia RN Nurse Roc Corral RT Monitor Procedure Data Cath Procedure Fluoroscopy Diagnostic fluoroscopy Total fluoroscopy Time: 2.1 time: 2.1 min min Diagnostic fluoroscopy Total fluoroscopy dose: 253 dose: 253 mGy mGy Contrast Material Contrast Material Type Amount (ml) Isovue 300 33 Entry Location Entry Primary Successful Side Size Upsize Upsize Entry Closure Her ccessful Closure Location (Fr) 1 (Fr) 2 (Fr) Remarks Device Remarks Radial Right 6 Fr Mechanical artery Short Compression Estimated blood loss: 10 ml Procedure Complications No complications Procedure Medications Medication Administration Route Dosage Oxygen NC 2 l/min Lidocaine 2% added to field 20 Heparin Flush Bag added to field 2 bags (1000units/500ml NS) 0.9% NaCl I.V. 100 ml/hr Radial Cocktail added to field 1 syringe (Verapomil 2mg/Nitro 400mcg/Heparin 1500units) Versed I.V. 1 mg Fentanyl I.V. 50 mcg Heparin Bolus I.V. 4000 units Versed I.V. 1 mg Fentanyl I.V. 50 mcg Versed I.V. 0.5 mg Fentanyl I.V. 25 mcg Plavix P.O. 75 mg Hemodynamics Rest BSA: 0.25 (m2) HGB: 13.6 (g/dl) O2 Consumption: Estimated: 21.21 (ml/min) O2 Con sumption indexed: Estimated:84.84 (ml/min/m) Heart Rate: 58 (bpm) Snapshots Pre Cath Intra NCS Post Cath Vital Signs Time Heart Resp SPO2 etCO2 NIBP (mmHg) Rhythm Pain Sedation Rate (ipm) (%) (mmHg) Status Level (bpm) 9:42:25 57 19 97 0 164/63(132) NSR 0 (11) 10(A) , No pain 9:46:47 64 17 98 24.6 177/73(128) NSR 0 (11) 10(A) , No pain 9:51:18 59 15 97 26.1 137/58(106) NSR 0 (11) 10(A) , No pain 9:55:36 59 13 97 29.8 128/55(98) NSR 0 (11) 10(A) , No pain 9:59:50 64 16 98 29.8 128/54(94) NSR 0 (11) 9(A) , No pain 10:04:02 67 15 95 29.9 123/61(98) NSR 0 (11) 9(A) , No pain 10:08:14 62 19 96 20.2 119/58(93) NSR 0 (11) 10(A) , No pain Medications Time Medication Route Dose Verified Delivered Reason Note s Effectiveness by by 9:40:37 Oxygen NC 2 l/min Teofilo Buffie used for Nathan Garcia RN procedure 9:40:49 Lidocaine 2% added 20ml Teofilo Red for local to vial Nathan Evans MD anesthetic field 9:40:57 Heparin Flush added 2 bags Teofilo Red used for Bag to Nathan Evans MD procedure (1000units/500ml field NS) 9:41:06 0.9% NaCl I.V. 100 Teofilo Buffie Per physician ml/hr Nathan Garcia RN 9:41:21 Radial Cocktail added 1 Teofilo Red for (Verapomil to syringe Nathan Evans MD vasodilation 2mg/Nitro field 400mcg/Heparin 1500units) 9:54:09 Fentanyl I.V. [address] for sedation Nathan Garcia RN 9:54:55 Versed I.V. 1 mg Teofilo Hiltonie for sedation Nathan Garcia RN 9:59:40 Heparin Bolus I.V. 4000 Teofilozachary Hiltonie for veri fied units Nathan Garcia RN anticoagulation with dr evans 9:59:46 Versed I.V. 1 mg Teofilo Buffie for sedation Nathan Garcia RN 9:59:50 Fentanyl I.V. 50 mcg Teofilo Hiltonie for sedation Nathan Garcia RN 10:03:11 Versed I.V. 0.5 mg Teofilo Buffie for sedation Nathan Garcia RN 10:03:15 Fentanyl I.V. 25 mcg Teofilo Hiltonie for sedation Nathan Garcia RN 10:06:45 Plavix P.O. [address] for Nathan Garcia RN antiplatelet therapy Procedure Log Time Note 9:03:22 Time tracking: Regular hours (M-F 7:00 - 5:00) 9:03:27 Plan of Care:Hemodynamics will remain stable., Cardiac rhythm will remain stable., Comfort level will be maintained., Respiratory function will remain adequate., Patient/ family verbilizes understanding of procedure., Procedure tolerated without complication., Recovers from procedure without complications.. 9:03:29 Signed procedure consent form obtained from patient. 9:03:42 H&P Date Dictated: 02/09/2018 Within 30 days and on chart., H&P Addendum completed by physician on day of procedure. (MUST COMPLETE FOR ALL OUTPATIENTS). 9:04:12 Patient allergic to Other allergyAMOXICILLIN, CODEINE, PCN 9:04:19 Patient Height : 5.2 inches 9:04:21 Patient Weight : 113 lbs 9:10:01 Alma Rosa Garcia RN sent for patient. Start room use. 9:24:15 Patient received from Pre/Post Procedure Room to CCL 2 Alert and oriented. Tansferred to table in Supine position. 9:24:16 Warm blankets applied, and leticia hugger turned on for patient comfort. 9:24:16 Correct patient and procedure confirmed by team. 9:24:17 ECG and BP/O2 sat monitors applied to patient. 9:39:32 Vital chart was started 9:40:37 Oxygen 2 l/min NC was administered by Alma Rosa Garcia RN; used for procedure; 9:40:49 Lidocaine 2% 20ml vial added to field was administered by Teofilo Evans MD; for local anesthetic; 9:40:57 Heparin Flush Bag (1000units/500ml NS) 2 bags added to field was administered by Teofilo Evans MD; used for procedure; 9:41:06 0.9% NaCl 100 ml/hr I.V. was administered by Alma Rosa Garcia RN; Per physician; 9:41:21 Radial Cocktail (Verapomil 2mg/Nitro 400mcg/Heparin 1500units) 1 syringe added to field was administered by Teofilo Evans MD; for vasodilation; 9:43:56 Baseline sample Acquired. 9:43:59 Baseline sample Acquired. 9:44:06 Rhythm: sinus bradycardia 9:44:07 Full Disclosure recording started 9:44:09 Pre-procedure instructions explained to patient. 9:44:09 Pre-op teaching completed and patient verbalized understanding. 9:44:11 Family in patients room. 9:44:13 Patient NPO since Midnight. 9:44:14 Is the patient allergic to Iodine/contrast media? No. 9:44:17 Is patient on blood thinner?Yes 9:44:19 ACC The patient was administered the following blood thiners within the last 24 hours: ACCPlavix 9:44:21 Patient diabetic? No. 9:44:23 Previous problem with sedation/anesthesia? No ? 9:44:24 Snore? No 9:44:29 Sleep apnea? No 9:44:30 Deviated septum? No 9:44:31 Opens mouth fully? Yes 9:44:32 Sticks out tongue? Yes 9:44:36 Airway obstruction? Yes COPD 9:44:40 Dentures? Yes IN 9:44:51 Pre procedure: right dorsailis pedis pulse 1+ Palpable, but thready & weak; easily obliterated 9:44:53 Modified Irineo's test Ulnar < 7 seconds 9:44:55 Patient pain scale 0/10 ?. 9:45:02 IV patent on arrival in left forearm with 0.9% NaCl at O. 9:45:05 Lab results completed and on chart. 9:45:08 Right Radial & Right Groin area was prepped with chlora-prep and draped in sterile fashion 9:45:09 Alarms reviewed by R. N. 9:45:09 Sharps counted by scrub and verified by R.N. 9:50:42 Use device set Radial Dx or PCI 9:50:45 Use device set TAUTH PCI 9:50:49 ACIST Syringe (64767) opened to sterile field. 9:50:50 Medline Cath Pack ([id number]) opened to sterile field. 9:50:51 Bag Decanter (2002) opened to sterile field. 9:50:52 ACIST Hand Control (02762) opened to sterile field. 9:50:53 ACIST Manifold (85468) opened to sterile field. 9:50:54 Tegaderm 4 x 4 (1626W) opened to sterile field. 9:50:57 DIAGNOSTIC WIRE .035 260cm J wire (803632) opened to sterile field. 9:50:58 MBrace Wrist Support ([id number]) opened to sterile field. 9:51:01 INFLATOR Merit BasixCompak (NZ1386) opened to sterile field. 9:51:02 SHEATH 6Fr Prelude Radial ([id number]) opened to sterile field. 9:51:05 CHOICE PT Extra Support 182cm wire ([id number]) opened to sterile field. 9:53:32 --------ALL STOP TIME OUT------ 9:53:33 Final Timeout: patient, procedure, and site verified with staff and physician. All members of the team are in agreement. 9:53:36 Right Radial & Right Groin site verified by team. 9:53:41 Physical assessment completed. ASA score P 2 - A patient with mild systemic disease as per Teofilo Evans MD. 9:53:44 Sedation plan: IV Moderate Sedation Medication:Versed, Fentanyl 9:54:09 Fentanyl 50 mcg I.V. was administered by Alma Rosa Garcia RN; for sedation; 9:54:55 Versed 1 mg I.V. was administered by Alma Rosa Garcia RN; for sedation; 9:55:24 Zero performed for pressure channel P1 9:58:35 Procedure started. 9:58:42 Local anesthetic to right radial artery with Lidocaine 2% by Teofilo Evans MD.INITIAL ACCESS ONLY 9:58:56 A 6 Fr Short sheath was inserted into the Right Radial artery 9:58:58 GUIDE 6FR XBLAD 3.5 catheter ([id number]) opened to sterile field. 9:59:05 [place] IVUS Catheter (75189L) opened to sterile field. 9:59:18 6 Fr XBLAD 3.5 guide catheter was inserted over the wire 9:59:40 Heparin Bolus 4000 units I.V. was administered by Alma Rosa Garcia RN; for anticoagulation; verified with dr evans 9:59:46 Versed 1 mg I.V. was administered by Alma Rosa Garcia RN; for sedation; 9:59:50 Fentanyl 50 mcg I.V. was administered by Alma Rosa Garcia RN; for sedation; 10:00:03 Choice PT XS wire advanced. 10:00:24 Wire advanced across lesion. 10:00:40 IVUS catheter advanced over wire. 10:00:50 IVUS pass to LMCA lesion performed. 10:00:54 IVUS pass to Circ lesion performed. 10:02:15 IVUS catheter removed over wire. 10:03:11 Versed 0.5 mg I.V. was administered by Alma Rosa Garcia RN; for sedation; 10:03:15 Fentanyl 25 mcg I.V. was administered by Alma Rosa Garcia RN; for sedation; 10:03:47 Place stent Inflation Number: 1 A ANNI RX 3.5 x 12 stent ([id number]) was prepped and advanced across the Prox CX. The stent was deployed at 17 ALAN for 0:10 (min:sec). 10:04:39 TR BAND Standard ([id number]) opened to sterile field. 10:04:51 Stent catheter was removed intact over wire. 10:04:52 Wire removed. 10:04:52 Guide catheter removed. 10:05:10 Sheath removed intact; hemostasis achieved with Mechanical Compression to the Right Radial artery. 10:05:12 Procedure ended.(Physican Out) 10:06:10 Fluoroscopy time 02.10 minutes. 10:06:14 Fluoroscopy dose: 253 mGy 10:06:14 Flurop Dose total: 253 10:06:45 Plavix 75 mg P.O. was administered by Alma Rosa Garcia RN; for antiplatelet therapy; 10:07:42 Contrast amount:Isovue 300 33ml. 10:07:43 Sharps counted by scrub and verified by R.N. 10:07:46 TR band inflated with 12cc of air. 10:07:48 Insertion/operative site no bleeding no hematoma. 10:08:11 Post Procedure Pulses reassessed and unchanged 10:08:14 Post-procedure physical assessment completed. ASA score P 2 - A patient with mild systemic disease as per Teofilo Evans MD. 10:08:16 Post procedure rhythm: unchanged. 10:08:18 Estimated blood loss: 10 ml 10:08:32 Post procedure instruction explained to patient.Patient verbalizes understanding. 10:08:33 Patient needs reinforcement of post procedure teaching. 10:09:29 Procedure type changed to Cath procedure, Diagnostic procedure, FFR/IVUS, Intra-Coronary IVUS Initial, Intra-Coronary IVUS Additional, PCI procedure, Coronary Stent, Coronary Stent Initial 10:09:42 Procedure and supply charges have been captured, reviewed, submitted and are correct. 10:09:45 Procedure Complication : No complications 10:10:28 Vital chart was stopped 10::29 See physician's report for complete and final results. 10:10:32 Report given to Pre/Post Procedure Room. 10:10:37 Patient transfered to Pre/Post Procedure Room with Stretcher. 10:10:45 Procedure ended. 10:10:45 Full Disclosure recording stopped 10:10:50 End room use (Document Last) Intervention Summary Intervention Notes Time ActionType Lesion and Equipment Used Action# Pressure Duration Attributes 10:03:47 Place stent Prox CX ANNI RX 3.5 x 1 17 00:10 12 stent ([id number]) Device Usage Item Name Manufacture Quantity Catalog Number Hospital Part Current Minimal Lot# / Charge Number Stock Stock Serial# Code ACIST Syringe Acist 1 81243 096372 951518 [id number] 20 (98535) Medical Systems Inc Medline Cath Cardinal 1 [id number] 303458 09994 100216 5 Pack Health ([id number]) Bag Decanter Microtek 1 2001S 110599 43537 932033 5 (2001S) Medical Inc. ACIST Hand Acist 1 67545 737687 580386 823134 5 Control (15418) Medical Systems Inc ACIST Manifold Acist 1 87493 869361 917780 665578 5 (20431) Medical Systems Inc Tegaderm 4 x 4 3M 1 1626W 872671 551579 298894 5 (1626W) DIAGNOSTIC WIRE St Jeff 1 020056 769796 081514 307153 30 .035 260cm J wire (242013) MBrace Wrist Advanced 1 140-0250-00 279993 47120 321478 5 Support Vascular (354823472) Dynamics INFLATOR Merit Merit 1 QQ7360 413569 086889 130978 15 BasixGlobeIn Medical (RZ4599) SHEATH 6Fr Merit 1 [id number] 331157 405488 976770 5 Prelude Radial Medical ([id number]) CHOICE PT Extra Jackson 1 [id number] 613056 804364 898674 5 Support 182cm Scientific wire ([id number]) GUIDE 6FR XBLAD Cardinal 1 [id number] 016746 808871 356812 10 3.5 catheter Health (03138296) [place] 1 03452L 735065 918610 304876 8 [place] IVUS Catheter (09620C) ANNI RX 3.5 x Medtronic 1 [id number] 864201 3413438 324531 5 [id number] 12 stent ([id number]) TR BAND Terumo 1 [id number] 001974 639535 083570 40 Standard ([id number]) Signature Audit [place] Stage Time Signature Unsigned Intra-Procedure 02/27/2018 Roc Corral 10:13:27 AM RT(R) Signatures Monitor : Roc Corral RT Signature : Date : Time : [address] [place] [address]
--- NOTE | ~2018-02-27 | OP ---
PATIENT NAME: JAIRO MORENO MEDICAL RECORD: [id number] :35 LOCATION:D.CAT ADMISSION DATE: SURGEON: NORMA CARDOZO MD DATE OF OPERATION: 02/28/2018 PROCEDURES: 1. PTCA stent LAD. 2. Selective coronary angiography. DESCRIPTION OF PROCEDURE: After informed consent was obtained and after a detailed explanation of the risks, benefits as well as alternative therapies, the patient elected to proceed with angiogram and angioplasty. The right femoral area was prepped and draped in normal sterile fashion. Right femoral artery was cannulated via modified Seldinger technique with placement of 6-Australian sheath. All catheters exchanged through this sheath. FINDINGS: The left anterior descending has 75-80% stenosis mid vessel, addressed with a 2.25 x 22 mm Lm stent. Result was 0% residual stenosis. OVERALL IMPRESSION: Successful percutaneous transluminal coronary angioplasty stent of the left anterior descending going from 80% initial stenosis to 0% residual. TRANSINT:[id number] Voice Confirmation ID: [id number] DOCUMENT ID: [id number] NORMA CARDOZO MD at 1325 CC: [id number] DICTATION DATE: 02/28/18 1241 MILL PLATFORM SUPERVISOR: 02/28/18 1252 DEP CLI 02/28/18 [place] [id number] [place] [address]
[~2018-02-27 08:10] MED LIST: BAYER CHEWABLE81 MG PO; COREG6.25 MG PO; CREON (PANCRELI1 CAP PO; HYDROCODONE-APA1 TAB PO; ISOSORBIDE MONO30 M1 PO; NORVASC5 MG PO; OMEPRAZOLE20 M1 PO; PLAVIX75 MG PO; TRAZODONE HCL50 MG PO
[2018-02-27 08:34] VITALS: BP 181/62; BMI 20.1
[2018-02-27 08:55] LABS: BASOPHILS 0.5 % (0-2); EOSINOPHILS 3.2 % (0-7); HEMATOCRIT 40.4 % (36.0-48.0); HEMOGLOBIN 13.5 g/dL (12-16); IMMATURE GRANULOCYTES 0.1 % (0-5); LYMPHOCYTES 25.8 % (15-50); MCHC 33.4 g/dL (31.0-37.0); MCV 92.7 fL (80.0-100.0); MEAN PLATELET VOLUME 9.1 fL (7.4-10.4); MONOCYTES 13.9 % (2-11); NEUTROPHILS 56.5 % (40-80); PLATELET COUNT 254 10x3/uL (130-400); RBC 4.36 10x6/uL (4.00-5.40); RDW 15.5 % (11.5-14.5); WBC 7.6 10x3/uL (4.8-10.8)
[2018-02-27 09:20] LABS: CALC OSMOLALITY 259 mosm/kg (275-300); CALCIUM 9.6 mg/dL (8.5-10.1); CARBON DIOXIDE 19.7 mmol/L (21.0-32.0); CHLORIDE - SERUM 102 mmol/L (98-107); CREATININE - SERUM 0.7 mg/dL (0.6-1.3); GLUCOSE 95 mg/dL (74-106); POTASSIUM - SERUM 5.2 mmol/L (3.5-5.1); SODIUM 130 mmol/L (136-145); UREA NITROGEN 11 mg/dL (7-18); eGFR NON AFRICAN AMERICAN 85 mL/min (90-120)
[2018-02-27 13:19] VITALS: BP 141/71; Ht 157.5 cm; Wt 50.0 kg
[2018-02-27 14:58] VITALS: BP 144/77
[2018-02-27 20:00] VITALS: BP 143/49
[2018-02-28 04:00] VITALS: BP 139/51
[2018-02-28 08:03] VITALS: BP 162/59
[2018-02-28 11:20] VITALS: BP 154/61
== END 2018-02-28 16:40 | disposition home or self-care (01) ==
LOC: D.CATH 08:10 → D.M2 12:45 → D.CLR 02-28 13:00 → D.CATH 02-28 16:40
PROVIDERS: Internal Medicine Interventional Cardiology
DX: I25.119 Atherosclerotic heart disease of native coronary artery with unspecified angina pectoris (principal); Z95.5 Presence of coronary angioplasty implant and graft; Z79.82 Long term (current) use of aspirin; Z79.02 Long term (current) use of antithrombotics/antiplatelets; Z01.812 Encounter for preprocedural laboratory examination
CPT/HCPCS: 92978; 92979; C9600 ×2

== ENCOUNTER 2018-08-21 08:28 | Outpatient (CLI) | payer MEDICARE, OTHER ==
[~2018-08-21] VITALS: Ht 157.5 cm; Wt 50.0 kg
--- NOTE | ~2018-08-21 | HEMODYNAMI ---
PATIENT:JAIRO MORENO MEDICAL RECORD: [id number] : 35 LOCATION:DJOSE [facility] ADMISSION DATE: 08/21/18 Generatedon:08/21/201811:09 Patient name: JAIRO MORENO Patient #: [id number] SSN: : 1935 Date of study: 08/21/2018 Page: Of Hemodynamic Procedure Report Patient Data Patient Demographics Procedure consent was obtained First Name: JAIRO Gender: Female Last Name: JOSH : 1935 [facility] Initial: MADAN Age: 83 year(s) Patient #: [id number] Race: Additional ID: [id number] Contact details [address]: [address] [place] [address] State: [place] City: [place] Zip code: [address] Past Medical History Allergies Allergen Reaction Date Comments Reported Codeine 02/20/2018 Amoxicillin 02/20/2018 Penicillins 02/20/2018 Other allergy 02/27/2018 AMOXICILLIN, CODEINE, PCN Other allergy 02/28/2018 Codeine. PCN, Amoxicillin Admission Admission Data Admission Date: 08/21/2018 Admission Time: 8:28 Procedure Procedure Types Cath Procedure Diagnostic Procedure [facility] w/Coronaries FFR/IVUS Intra-Coronary IVUS Initial PCI Procedure Coronary Stent Coronary Stent Initial Peripheral Cath Diagnostic Procedure Voip Engineer Peripheral Procedures Dqtoi-Ktujiew-Lki-Off Procedure Description Procedure Date Procedure Date: 08/21/2018 Procedure Start Time: 10:51 Procedure End Time: 11:04 Procedure Staff Name Function Teofilo Evans MD Performing Physician Jonelle Falcon RT Monitor Ariella Church RT Scrub Nasreen Alexandra RN Nurse Procedure Data Cath Procedure Fluoroscopy Diagnostic fluoroscopy Total fluoroscopy Time: 2.8 time: 2.8 min min Diagnostic fluoroscopy Total fluoroscopy dose: 254 dose: 254 mGy mGy Contrast Material Contrast Material Type Amount (ml) Isovue 300 97 Entry Location Entry Primary Successful Side Size Upsize Upsize Entry Closure Succes sful Closure Location (Fr) 1 (Fr) 2 (Fr) Remarks Device Remarks Femoral Right 5 Fr 6 Fr Exoseal artery Short Estimated blood loss: 5 ml Diagnostic catheters Device Type Used For End Catheter Placement MULTIPACK Pigtail 5 Fr Multi-vessel catheter Angiography MULTIPACK JL 4.0 5Fr Left Coronary catheter Angiography MULTIPACK 3DRC 5Fr Right Coronary catheter Angiography Procedure Complications No complications Procedure Medications Medication Administration Route Dosage 0.9% NaCl I.V. 100 ml/hr Oxygen etCO2 Nasal cannula 2 l/min Lidocaine 2% added to field 20 Heparin Flush Bag added to field 2 bags (1000units/500ml NS) Versed I.V. 2 mg Fentanyl I.V. 50 mcg Versed I.V. 1 mg Fentanyl I.V. 25 mcg Heparin Bolus I.V. 4000 units Hemodynamics Rest Heart Rate: 68 (bpm) Pressure Samples Time Site Value (mmHg) Purpose Heart Use Rate(bpm) 10:52 LV 121/5,9 Snapshot 74 Snapshots Pre Cath Intra NCS Post Cath Vital Signs Time Heart Resp SPO2 etCO2 NIBP (mmHg) Rhythm Pain Sedation Rate (ipm) (%) (mmHg) Status Level (bpm) 10:38:02 68 20 98 25.8 185/76(134) NSR 0 (11) 10(A) , No pain 10:42:31 65 10 99 21.3 169/63(123) NSR 0 (11) 10(A) , No pain 10:46:57 65 13 99 25.1 156/63(108) NSR 0 (11) 10(A) , No pain 10:51:15 62 10 98 27.3 140/61(104) NSR 0 (11) 10(A) , No pain 10:55:35 64 10 98 24.3 137/55(104) NSR 0 (11) 9(A) , No pain 10:59:55 67 11 98 29.6 139/57(107) NSR 0 (11) 10(A) , No pain 11:04:15 67 11 98 29.6 136/56(98) NSR 0 (11) 10(A) , No pain Medications Time Medication Route Dose Verified Delivered Reason Notes Effectiveness by by 10:38:17 0.9% NaCl I.V. 100 Teofilo Langyla used for ml/hr Nathan Alexandra forensic medical examiner 10:38:23 Oxygen etCO2 2 Teofilo Nasreen used for Nasal l/min Nathan Alexandra procedure cannula RN 10:38:28 Lidocaine 2% added 20ml Teofilo Red for local to vial Nathan Evans MD anesthetic field 10:38:35 Heparin Flush added 2 Teofilo Nasreen used for Bag to bags Nathan Alexandra procedure (1000units/500ml field RN NS) 10:45:06 Versed I.V. 2 mg Teofilo Nasreen for sedation Nathan Alexandra RN 10:45:14 Fentanyl I.V. 50 Teofilo Nasreen for sedation mcg Nathan Alexandra RN 10:50:37 Versed I.V. 1 mg Teofilo Nasreen for sedation Nathan Alexandra RN 10:50:42 Fentanyl I.V. 25 Teofilo Nasreen for sedation mcg Nathan Alexandra RN 10:58:01 Heparin Bolus I.V. 4000 Teofilo Langyla for verif ied units Nathan Alexandra anticoagulation with Dr. ASHISH Evans Procedure Log Time Note 10:28:43 Informed consent obtained and on chart 10:28:53 Diagnostic Cath Status : Elective 10:29:27 Nasreen Alexandra RN sent for patient. Start room use. 10:29:28 Time tracking: Regular hours (M-F 7:00 - 5:00) 10:29:32 Plan of Care:Hemodynamics will remain stable., Cardiac rhythm will remain stable., Comfort level will be maintained., Respiratory function will remain adequate., Patient/ family verbilizes understanding of procedure., Procedure tolerated without complication., Recovers from procedure without complications.. 10:32:44 Patient received from Pre/Post Procedure Room to CCL 1 Alert and oriented. Tansferred to table in Supine position. 10:32:46 Warm blankets applied, and leticia hugger turned on for patient comfort. 10:32:46 Correct patient and procedure confirmed by team. 10:32:47 ECG and BP/O2 sat monitors applied to patient. 10:32:48 Full Disclosure recording started 10:36:45 Vital chart was started 10:38:17 0.9% NaCl 100 ml/hr I.V. was administered by Nasreen Alexandra RN; used for procedure; 10:38:23 Oxygen 2 l/min etCO2 Nasal cannula was administered by Nasreen Alexandra RN; used for procedure; 10:38:28 Lidocaine 2% 20ml vial added to field was administered by Teofilo Evans MD; for local anesthetic; 10:38:35 Heparin Flush Bag (1000units/500ml NS) 2 bags added to field was administered by Nasreen Alexandra RN; used for procedure; 10:40:47 Baseline sample Acquired. 10:40:50 Rhythm: sinus rhythm 10:41:01 H&P Date Dictated: 08/21/2018 Within 30 days and on chart., H&P Addendum completed by physician on day of procedure. (MUST COMPLETE FOR ALL OUTPATIENTS). 10:41:21 Pre-procedure instructions explained to patient. 10:41:21 Pre-op teaching completed and patient verbalized understanding. 10:41:22 Family in waiting room. 10:41:24 Patient NPO since Midnight. 10:41:27 Is the patient allergic to Iodine/contrast media? No. 10:41:28 Was the patient premedicated? No 10:41:29 Is patient on blood thinner?Yes 10:41:32 ACC The patient was administered the following blood thiners within the last 24 hours: ACCPlavix 10:41:35 Patient diabetic? No. 10:41:38 Previous problem with sedation/anesthesia? No ? 10:41:41 Snore? No 10:41:49 Sleep apnea? No 10:41:50 Deviated septum? No 10:41:50 Opens mouth fully? Yes 10:41:51 Sticks out tongue? Yes 10:41:55 Airway obstruction? Yes copd 10:41:59 Dentures? Yes in tight 10:42:05 Pre procedure: right dorsailis pedis pulse 1+ Palpable, but thready & weak; easily obliterated 10:42:07 Pre procedure: left dorsailis pedis pulse 1+ Palpable, but thready & weak; easily obliterated 10:42:09 Patient pain scale 0/10 ?. 10:43:01 IV patent on arrival in left forearm with 0.9% NaCl at [facility]. 10:43:03 Lab results completed and on chart. 10:43:08 Right groin area was prepped with chlora-prep and draped in sterile fashion 10:43:09 Alarms reviewed by R. N. 10:43:09 Sharps counted by scrub and verified by R.N. 10:43:14 Physician arrived 10:43:15 --------ALL STOP TIME OUT------ 10:43:15 Final Timeout: patient, procedure, and site verified with staff and physician. All members of the team are in agreement. 10:43:17 Right groin site verified by team. 10:43:20 Physical assessment completed. ASA score P 2 - A patient with mild systemic disease as per Teofilo Evans MD. 10:43:24 Sedation plan: IV Moderate Sedation Medication:Versed, Fentanyl 10:45:06 Versed 2 mg I.V. was administered by Nasreen Alexandra RN; for sedation; 10:45:14 Fentanyl 50 mcg I.V. was administered by Nasreen Alexandra RN; for sedation; 10:50:37 Versed 1 mg I.V. was administered by Nasreen Alexandra RN; for sedation; 10:50:42 Fentanyl 25 mcg I.V. was administered by Nasreen Alexandra RN; for sedation; 10:51:22 Zero performed for pressure channel P1 10:51:33 Procedure started. 10:51:39 Local anesthetic to right femoral artery with Lidocaine 2% by Teofilo Evans MD.INITIAL ACCESS ONLY 10:51:48 A 5 Fr sheath was inserted into the Right Femoral artery 10:51:56 Use device set Femoral Dx 10:51:57 ACIST Syringe (27662) opened to sterile field. 10:51:58 Bag Decanter (2002) opened to sterile field. 10:51:58 Medline Cath Pack ([id number]) opened to sterile field. 10:51:59 DIAGNOSTIC WIRE .035 260cm J wire (496652) opened to sterile field. 10:52:00 ACIST Hand Control (51630) opened to sterile field. 10:52:00 ACIST Manifold (49778) opened to sterile field. 10:52:01 DIAGNOSTIC Multipack 5Fr catheter set (UF2306) opened to sterile field. 10:52:01 Tegaderm 4 x 4 (1626W) opened to sterile field. 10:52:02 SHEATH 5FR Dewitt (NQT314) opened to sterile field. 10:52:21 Procedure type changed to Cath procedure, Diagnostic procedure, LHC, LHC w/Coronaries, FFR/IVUS, Intra-Coronary IVUS Initial, PCI procedure, Coronary Stent, Coronary Stent Initial, Peripheral Cath Diagnostic Procedure, Voip Engineer Peripheral Procedures, Eefkf-Hbtmupl-Mxf-Off 10:52:40 A MULTIPACK Pigtail 5 Fr catheter was advanced over the wire and used for Multi-vessel Angiography. 10:52:45 LV hemodynamics recorded. 10:52:46 LV gram done using MURCIA 10:52:49 Injector settings: Ml/sec: 5, Volume: 15, 10:52:55 EF : 55 % 10:53:23 Abdominal angiogram w/ runoff was performed. 10:54:13 Catheter removed. 10:54:19 A MULTIPACK JL 4.0 5Fr catheter was advanced over the wire and used for Left Coronary Angiography. 10:55:13 LCA angiography performed. 10:55:16 Injector settings: Ml/sec: 3, Volume: 6, 10:55:41 SHEATH 6FR Dewitt (CHV121) opened to sterile field. 10:55:42 INFLATOR Merit BasixCompak (PT9353) opened to sterile field. 10:55:43 CHOICE PT Extra Support 182cm wire ([id number]) opened to sterile field. 10:56:11 Catheter removed. 10:56:16 A MULTIPACK 3DRC 5Fr catheter was advanced over the wire and used for Right Coronary Angiography. 10:56:39 RCA angiography performed. 10:56:44 Injector settings: Ml/sec: 3, Volume: 6, 10:57:25 Catheter removed. 10:57:31 Proceeding to intervention. 10:57:58 GUIDE 6FR AR 1.0 catheter (MP5CJ84) opened to sterile field. 10:58:01 Heparin Bolus 4000 units I.V. was administered by Nasreen Alexandra RN; for anticoagulation; verified with Dr. Evans 10:58:07 Sheath upsized to a 6 Fr Short. 10:58:14 [place] IVUS Catheter (64517O) opened to sterile field. 10:58:45 6 Fr ar 1 guide catheter was inserted over the wire 10:58:51 choice pt wire advanced. 10:58:53 Wire advanced across lesion. 10:58:57 IVUS catheter advanced over wire. 11:00:10 IVUS pass to RCA lesion performed. 11:00:12 IVUS catheter removed over wire. 11:00:48 Place stent Inflation Number: 1 A ANNI RX 3.0 x 30 stent ([id number]) was prepped and advanced across the Mid RCA. The stent was deployed at 17 ALAN for 0:10 (min:sec). 11:01:06 Stent catheter was removed intact over wire. 11:01:07 Wire removed. 11:01:08 Guide catheter removed. 11:01:29 EXOSEAL 6Fr (EX600) opened to sterile field. 11:01:39 Sheath removed intact; hemostasis achieved with Exoseal to the Right Femoral artery. 11:03:09 Procedure ended.(Physican Out) 11:03:13 Fluoroscopy time 02.80 minutes. 11:03:17 Flurop Dose total: 254 11:03:17 Fluoroscopy dose: 254 mGy 11:03:24 Contrast amount:Isovue 300 97ml. 11:03:26 Sharps counted by scrub and verified by R.N. 11:03:27 Insertion/operative site no bleeding no hematoma. 11:03:31 Post-op/insertion site Right Femoral artery dressed using a 4 x 4 and Tegaderm. 11:03:32 Post Procedure Pulses reassessed and unchanged 11:03:35 Post procedure rhythm: unchanged. 11:03:38 Estimated blood loss: 5 ml 11:03:39 Post procedure instruction explained to patient.Patient verbalizes understanding. 11:03:40 Patient needs reinforcement of post procedure teaching. 11:03:41 Procedure and supply charges have been captured, reviewed, submitted and are correct. 11:03:46 Procedure Complication : No complications 11:03:49 Vital chart was stopped 11:03:50 See physician's report for complete and final results. 11:03:53 Report given to Pre/Post Procedure Room. 11:03:58 Patient transfered to Pre/Post Procedure Room with Stretcher. 11:04:08 Procedure ended. 11:04:08 Full Disclosure recording stopped 11:04:16 ACC-PCI Only Patient was given prescriptions, or instructed by Teofilo Evans MD to start/continue the following medications upon discharge: Plavix 11:04:18 End room use (Document Last) Intervention Summary Intervention Notes Time ActionType Lesion and Equipment Used Action# Pressure Duration Attributes 11:00:48 Place stent Mid RCA ANNI RX 3.0 x 1 17 00:10 30 stent ([id number]) Device Usage Item Name Manufacture Quantity Catalog Number Hospital Part Current M inimal Lot# / Charge Number Stock Stock Serial# Code ACIST Syringe Acist 1 90374 216994 797234 134169 2 0 (69430) Medical Systems Inc Bag Decanter Microtek 1 [id number] 15287 092487 5 () Medical Inc. Medline Cath Medline 1 [id number] 053817 58087 082711 5 Pack ([id number]) DIAGNOSTIC St Jeff 1 616664 138353 660634 149914 3 0 WIRE .035 260cm J wire (558547) ACIST Hand Acist 1 22562 419325 602879 028567 5 Control Medical (25836) Systems Inc ACIST Manifold Acist 1 99417 235661 614559 683376 5 (59857) Medical Systems Inc DIAGNOSTIC Cardinal 1 RK7588 035985 74097 811288 3 0 Multipack 5Fr Health catheter set (VL5543) Tegaderm 4 x 4 3M 1 1626W 333533 755349 276150 5 (1626W) SHEATH 5FR Terumo 1 HPX599 414662 071792 848529 5 Dewitt (BLB897) MULTIPACK Cardinal 1 049877 5 Pigtail 5 Fr Health catheter MULTIPACK JL Cardinal 1 714890 5 4.0 5Fr Health catheter SHEATH 6FR Terumo 1 NFH269 058156 915920 099967 4 0 Dewitt (YKO613) INFLATOR Merit Merit 1 UG4996 759753 474784 006397 1 5 [employer] [employer] [facility] (IB6474) CHOICE PT [place] 1 [id number] 933255 713822 918078 5 Extra Support Scientific 182cm wire ([id number]) MULTIPACK 3DRC Cardinal 1 526684 5 5Fr catheter Health GUIDE 6FR AR Medtronic 1 [id number] 930130 59268 885926 1 1.0 catheter (DT2DW70) [place] 1 [id number] 496037 354656 667822 8 [place] IVUS Catheter (33417N) ANNI RX 3.0 x Medtronic 1 [id number] 786001 4652433 970826 5 [id number] 30 stent ([id number]) EXOSEAL 6Fr Cardinal 1 EX600 597843 577659 866758 1 0 (EX600) Health Signature Audit [place] Stage Time Signature Unsigned Intra-Procedure 08/21/2018 Jonelle Falcon 11:08:58 AM RT(R) Signatures Monitor : Jonelle Falcon RT Signature : Date : Time : [id number] [place] [address]
[2018-08-21 09:24] VITALS: BP 175/54; Ht 157.5 cm; Wt 50.0 kg
[2018-08-21 10:00] LABS: BASOPHILS 0.5 % (0-2); EOSINOPHILS 1.9 % (0-7); HEMATOCRIT 37.9 % (36.0-48.0); HEMOGLOBIN 12.6 g/dL (12-16); IMMATURE GRANULOCYTES 0.1 % (0-5); LYMPHOCYTES 22.8 % (15-50); MCH 31.3 pg (26.0-34.0); MCHC 33.2 g/dL (31.0-37.0); MEAN PLATELET VOLUME 9.7 fL (7.4-10.4); MONOCYTES 12.5 % (2-11); NEUTROPHILS 62.2 % (40-80); PLATELET COUNT 288 10x3/uL (130-400); RBC 4.03 10x6/uL (4.00-5.40); RDW 13.7 % (11.5-14.5); WBC 8.5 10x3/uL (4.8-10.8)
[2018-08-21 10:33] LABS: ANION GAP 14.2 mmol/L (8-16); CALCIUM 9.7 mg/dL (8.5-10.1); CARBON DIOXIDE 26.3 mmol/L (21.0-32.0); CREATININE - SERUM 0.9 mg/dL (0.6-1.3); POTASSIUM - SERUM 3.5 mmol/L (3.5-5.1)
--- NOTE | 2018-08-21 11:30 | NUR ---
PATIENT AWAKE, FAMILY PRESENT AT BEDSIDE. VSS ON 2L NASAL CANNULA. RIGHT GROIN DRESSING IS CDI, NO S/S OF BLEEDING OR HEMATOMA. PATIENT DRINKING COFFEE, NO N/V.
--- NOTE | 2018-08-21 12:00 | NUR ---
PATIENT AWAKE, VSS ON 1L NASAL CANNULA. RIGHT GROIN DRESSING IS CDI, NO S/S OF BLEEDING OR HEMATOMA. 2+ PEDAL PULSES.
--- NOTE | 2018-08-21 12:15 | NUR ---
PATIENT AWAKE, EATING VEGETABLE TRAY WITH NO N/V. VSS ON 1L NASAL CANNULA. RIGHT GROIN DRESSING IS CDI, NO S/S OF BLEEDING OR HEMATOMA.
--- NOTE | 2018-08-21 12:45 | NUR ---
PATIENT AWAKE, VSS ON 1L NASAL CANNULA. NO C/O PAIN, NUMBNESS, OR TINGLING. RIGHT GROIN DRESSING IS CDI,NO S/S OF BLEEDING OR HEMATOMA. PHYSICIAN AT BEDSIDE TO UPDATE FAMILY.
--- NOTE | 2018-08-21 13:15 | NUR ---
PATIENT AWAKE, ASSISTED WITH BEDPAN. VSS ON 1L NASAL CANNULA. NO C/O PAIN, NUMBNESS, OR TINGLING. RIGHT GROIN DRESSING IS CDI, NO S/S OF BLEEDING OR HEMATOMA.
--- NOTE | 2018-08-21 13:45 | NUR ---
PATIENT AWAKE, FAMILY AT BEDSIDE. VSS ON ROOM AIR. RIGHT GROIN DRESSING IS CDI, NO S/S OF BLEEDING OR HEMATOMA.
--- NOTE | 2018-08-21 14:15 | NUR ---
PATIENT AWAKE, HEAD OF BED ELEVATED TO 30 DEGREES. RIGHT GROIN DRESSING IS CDI, NO S/S OF BLEEDING OR HEMATOMA.
--- NOTE | 2018-08-21 14:45 | NUR ---
PATIENT HEAD ELEVATED TO 90 DEGREES. RIGHT GROIN IS CDI, NO S/S OF BLEEDING OR HEMATOMA. IV REMOVED. EDUCATION REGARDING DISCHARGE INSTRUCTIONS AND MEDICATIONS GIVEN TO PATIENT AND FAMILY MEMBER, ALL QUESTIONS ANSWERED. VSS ON ROOM AIR.
--- NOTE | 2018-08-21 15:05 | NUR ---
PATIENT TRANSPORTED VIA WHEELCHAIR TO CAR WITH FAMILY DRIVING, ALL BELONGINGS WITH PATIENT.
--- NOTE | 2018-08-22 13:29 | OP ---
PATIENT NAME: JAIRO MORENO MEDICAL RECORD: [id number] :35 LOCATION:D.CAT ADMISSION DATE: SURGEON: NORMA CARDOZO MD DATE OF OPERATION: 08/21/2018 DATE OF SERVICE: 08/21/2018 PROCEDURES: 1. PTCA stent RCA. 2. Intravascular ultrasound. 3. Left heart catheterization. 4. Selective coronary angiography. 5. Left ventriculogram. INDICATION: Unstable angina and coronary artery disease. PROCEDURE PERFORMED: After informed consent was obtained and after detailed description of risks, benefits as well as alternative therapies, the patient elected to proceed with angiogram and angioplasty. The right femoral area was prepped and draped in normal sterile fashion. Right femoral artery was cannulated via modified Seldinger technique with placement of 6-Lao sheath. All catheters exchanged through this sheath. FINDINGS: Left ventriculogram was performed in standard 30-degree MURCIA view, reveals good cardiac wall motion throughout all segments. Overall ejection fraction is 55% to 60%. SELECTIVE CORONARY ANGIOGRAPHY: 1. Left main has questionable stenosis in the distal vessel. This will be better delineated by intravascular ultrasound. 2. Left anterior descending has at least 70% stenosis proximally followed by a 90% stenosis in the mid vessel. 3. Left circumflex has moderate irregularities, but no flow-limiting stenosis. 4. Right coronary has tandem areas of in-stent restenosis greater than 80%, confirmed by intravascular ultrasound. PTCA STENT OF THE RCA: The stent used covering both areas of stenosis was a 3.0 x 30 mm Lm, taken to 19 atmospheres. Result was 0% residual stenosis. OVERALL IMPRESSION: Successful percutaneous transluminal coronary angioplasty stent of the right coronary artery going from greater than 80% initial stenosis times 2 to 0% residual stenosis. Plan for intravascular ultrasound of the left main and percutaneous transluminal coronary angioplasty stent of the left anterior descending and possibly left main as well in the near future. TRANSINT:[id number] Voice Confirmation ID: [id number] DOCUMENT ID: [id number] OPERATIVE REPORT [id number] JAIRO MORENO JEFFREY MD at 1329 CC: [id number] DICTATION DATE: 08/21/18 1109 BARREL LINER: 08/21/18 1402 DEP CLI 08/21/18 [facility] [address] [place] [address]
--- NOTE | 2018-08-22 13:29 | OP ---
PATIENT NAME: JAIRO MORENO MEDICAL RECORD: [id number] :35 LOCATION:D.CAT ADMISSION DATE: SURGEON: NORMA CARDOZO MD DATE OF OPERATION: 08/21/2018 DATE OF SERVICE: 08/21/2018 PROCEDURE: 1. Aortofemoral runoff. 2. Abdominal aortography. INDICATION: Claudication and peripheral vascular disease. PROCEDURE IN DETAIL: After informed consent was obtained and after a detailed explanation of risks, benefits as well as alternative therapies, the patient elected to proceed with angiogram and aortofemoral runoff. FINDINGS: There was advancement of the catheter to do abdominal aortography pull back for aortofemoral runoff. Abdominal aortography reveals no significant abdominal aortic disease. No dissection or aneurysm formation. No renal artery stenosis. RIGHT LEG: A. Iliac: The common internal and external iliacs have moderate irregularities, but no flow-limiting stenosis. B. Femoral system: The common and deep femoral are widely patent. Superficial femoral has 80% to 90% stenosis in the mid distal vessel. C. Popliteal and infrapopliteal vessels are patent with good 3-vessel runoff to the foot is preserved, although diffusely diseased. LEFT LEG: A. Iliac: The common iliac has greater than 70% stenosis in the proximal aspect followed by moderate irregularities of the external iliac. B. Femoral system: The common and deep femoral are widely patent. Superficial femoral has 80+ percent stenosis in the mid distal vessel. C. Popliteal and infrapopliteal vessels are preserved, 3-vessel runoff to the foot, although mildly diffusely diseased. OVERALL IMPRESSION: Significant superficial femoral artery disease bilaterally that is amenable to transcatheter revascularization as well as left iliac disease. TRANSINT:[id number] Voice Confirmation ID: [id number] DOCUMENT ID: [id number] NORMA CARDOZO MD at 1329 CC: [id number] DICTATION DATE: 08/21/18 1107 [place] FOREMAN/SUPERINTENDANT: 08/21/18 1402 DEP CLI 08/21/18 [place] [id number]
== END 2018-08-21 15:05 ==
LOC: D.CATH 08:28
PROVIDERS: Internal Medicine Interventional Cardiology
DX: I25.110 Atherosclerotic heart disease of native coronary artery with unstable angina pectoris (principal); I70.213 Atherosclerosis of native arteries of extremities with intermittent claudication, bilateral legs
CPT/HCPCS: 93458; 92978; C9600

== ENCOUNTER 2018-08-28 08:02 | Outpatient (CLI) | payer MEDICARE, OTHER ==
[~2018-08-28] VITALS: Ht 157.5 cm; Wt 53.3 kg
[2018-08-28] VITALS (23 sets, daily range): BP systolic 127–170; BP diastolic 54–71; Ht 157.5 cm; Wt 53.3 kg
--- NOTE | ~2018-08-28 | HEMODYNAMI ---
PATIENT:JAIRO MORENO MEDICAL RECORD: [id number] : 35 LOCATION:[facility] ADMISSION DATE: 08/28/18 Generatedon:08/28/201811:08 Patient name: JAIRO MORENO Patient #: [id number] SSN: : 1935 Date of study: 08/28/2018 Page: Of Hemodynamic Procedure Report Patient Data Patient Demographics Procedure consent was obtained First Name: JAIRO Gender: Female Last Name: JOSH : 1935 [facility] Initial: MADAN Age: 83 year(s) Patient #: [id number] Race: Additional ID: [id number] Contact details [address]: [address] [place] [address] 13 State: [place] City: [place] Zip code: [address] Past Medical History Allergies Allergen Reaction Date Comments Reported Codeine 02/20/2018 Amoxicillin 02/20/2018 Penicillins 02/20/2018 Other allergy 02/27/2018 AMOXICILLIN, CODEINE, PCN Other allergy 02/28/2018 Codeine. PCN, Amoxicillin Other allergy 08/28/2018 Amoxicillin, Codeine, PCN Admission Admission Data Admission Date: 08/28/2018 Admission Time: 8:02 Admit Source: Other Lab Results Lab Result Date: 08/28/2018 Lab Result Time: 8:20 Biochemistry Name Units Result Min Max BUN mg/dl 7 --(*---)-- 7 18 Creatinine mg/dl 0.7 --(*---)-- 0.6 1.3 CBC Name Units Result Min Max Hematocrit % 38.7 *-(----)-- 42 54 Hemoglobin g/dl 12.9 -*(----)-- 13.5 17.5 Procedure Procedure Types Cath Procedure Diagnostic Procedure FFR/IVUS Intra-Coronary IVUS Initial Intra-Coronary IVUS Additional Sedation Charges Moderate Sedation up to 30 minutes PCI Procedure Coronary Stent Coronary Stent Initial x2 Procedure Description Procedure Date Procedure Date: 08/28/2018 Procedure Start Time: 10:26 Procedure End Time: 10:55 Procedure Staff Name Function Teofilo Evans MD Performing Physician Lisandro Roach RT Monitor Roc Corral RT Scrub Anmol Castro RN Nurse Procedure Data Cath Procedure Fluoroscopy Diagnostic fluoroscopy Total fluoroscopy Time: time: 10.7 min 10.7 min Diagnostic fluoroscopy Total fluoroscopy dose: 760 dose: 760 mGy mGy Contrast Material Contrast Material Type Amount (ml) Isovue 300 160 Entry Location Entry Primary Successful Side Size Upsize Upsize Entry Closure Succes sful Closure Location (Fr) 1 (Fr) 2 (Fr) Remarks Device Remarks Femoral Right 6 Fr Exoseal artery Short Estimated blood loss: 10 ml Procedure Complications No complications Procedure Medications Medication Administration Route Dosage Oxygen etCO2 Nasal cannula 2 l/min Heparin Flush Bag added to field 2 bags (1000units/500ml NS) 0.9% NaCl I.V. 100 ml/hr Lidocaine 2% added to field 20 Fentanyl I.V. 50 mcg Versed I.V. 1 mg Fentanyl I.V. 50 mcg Versed I.V. 1 mg Fentanyl I.V. 50 mcg Heparin Bolus I.V. 4000 units Fentanyl I.V. 50 mcg Versed I.V. 1 mg Nitroglycerin IC/IA I.C. 200 mcg Nitroglycerin IC/IA I.C. 200 mcg Integrilin (Bolus I.V. 4.5 ml 2mg/ml) Integrilin (Bolus wasted 5.5 ml 2mg/ml) Integrilin Drip I.V. drip 8 ml/hr (75mg/100ml) Versed I.V. 1 mg Hemodynamics Rest HGB: 12.9 (g/dl) Heart Rate: 67 (bpm) Snapshots Pre Cath Intra NCS Post Cath Vital Signs Time Heart Resp SPO2 etCO2 NIBP (mmHg) Rhythm Pain Sedation Rate (ipm) (%) (mmHg) Status Level (bpm) 9:43:58 67 17 98 0 178/78(137) NSR 0 (11) 10(A) , No pain 9:48:24 65 17 97 0 178/70(141) NSR 0 (11) 10(A) , No pain 9:52:46 67 17 96 23.5 182/77(133) NSR 0 (11) 10(A) , No pain 9:57:13 65 16 98 25 172/75(133) NSR 0 (11) 10(A) , No pain 10:01:39 64 16 97 25.7 152/64(120) NSR 0 (11) 10(A) , No pain 10:05:55 61 17 98 26.5 162/69(119) NSR 0 (11) 10(A) , No pain 10:10:15 62 16 98 29.6 153/69(123) NSR 0 (11) 10(A) , No pain 10:14:33 63 17 98 28.8 162/67(124) NSR 0 (11) 10(A) , No pain 10:18:55 61 16 98 35.6 156/65(115) NSR 0 (11) 10(A) , No pain 10:23:11 67 17 98 26.5 158/75(124) NSR 0 (11) 10(A) , No pain 10:27:34 61 17 98 28.1 148/62(111) NSR 0 (11) 10(A) , No pain 10:31:53 53 16 97 23.5 122/57(99) NSR 0 (11) 10(A) , No pain 10:36:04 61 17 97 37.2 124/57(101) NSR 0 (11) 10(A) , No pain 10:40:15 63 16 97 37.1 129/53(93) NSR 0 (11) 10(A) , No pain 10:44:25 77 17 96 31.8 125/67(105) NSR 0 (11) 10(A) , No pain 10:48:35 64 16 94 25.7 139/66(107) NSR 0 (11) 10(A) , No pain 10:52:49 56 16 96 27.3 137/67(117) NSR 0 (11) 10(A) , No pain 11:01:50 55 17 96 28 142/71(115) NSR 0 (11) 10(A) , No pain Medications Time Medication Route Dose Verified Delivered Reason Notes Effectiveness by by 9:49:45 Oxygen etCO2 2 Teofilo Corea Per physician Nasal l/min Nathan Castro RN cannula 9:49:52 Heparin Flush added 2 Teofilo Corea used for Bag to bags Nathan Castro sort line (1000units/500ml field NS) 9:50:00 0.9% NaCl I.V. 100 Teofilo Anmol Per physician ml/hr Nathan Castro RN 9:50:11 Lidocaine 2% added 20ml Teofilo Chávezy used for to vial Nathan Castro sort line field 10:11:51 Fentanyl I.V. 50 Teofilo Anmol for sedation mcg Nathan Castro RN 10:11:57 Versed I.V. 1 mg Teofilo Anmol for sedation Nathan Castro RN 10:23:53 Fentanyl I.V. 50 Teofilo Anmol for sedation mcg Nathan Castro RN 10:23:58 Versed I.V. 1 mg Teofilo Anmol for sedation Nathan Castro RN 10:25:22 Fentanyl I.V. 50 Teofilo Anmol for sedation mcg Nathan Castro RN 10:27:49 Heparin Bolus I.V. 4000 Teofilo Anmol for units Nathan Castro RN anticoagulation 10:28:02 Fentanyl I.V. 50 Teofilo Anmol for sedation mcg Nathan Castro RN 10:34:12 Versed I.V. 1 mg Teofilo Chávezy for sedation Nathan Castro RN 10:43:38 Nitroglycerin I.C. 200 Teofilo Teofilo for IC/IA mcg Nathan Evans MD vasodilation 10:45:43 Nitroglycerin I.C. 200 Teofilo Teofilo for IC/IA mcg Nathan Evans MD vasodilation 10:46:14 Versed I.V. 1 mg Teofilo Chávezy for sedation Nathan Castro RN 10:50:53 Integrilin I.V. 4.5 Teofilo Corea for (Bolus 2mg/ml) ml Nathan Castro RN antiplatelet therapy 10:50:59 Integrilin wasted 5.5 Teofilo Chávezy for (Bolus 2mg/ml) ml Nathan Castro RN antiplatelet therapy 11:00:35 Integrilin Drip I.V. 8 Teofilo Corea for (75mg/100ml) drip ml/hr Nathan Castro RN antiplatelet therapy Procedure Log Time Note 9:03:55 Informed consent obtained and on chart 9:04:23 Admit Source: Other 9:12:01 Diagnostic Cath status Elective 9:12:02 Time tracking: Regular hours (M-F 7:00 - 5:00) 9:12:06 Plan of Care:Hemodynamics will remain stable., Cardiac rhythm will remain stable., Comfort level will be maintained., Respiratory function will remain adequate., Patient/ family verbilizes understanding of procedure., Procedure tolerated without complication., Recovers from procedure without complications.. 9:12:26 H&P Date Dictated: 08/16/2018 Within 30 days and on chart., H&P Addendum completed by physician on day of procedure. (MUST COMPLETE FOR ALL OUTPATIENTS). 9:21:41 Anmol Castro RN sent for patient. Start room use. 9:36:59 Patient received from Pre/Post Procedure Room to CCL 2 Alert and oriented. Tansferred to table in Supine position. 9:37:00 Warm blankets applied, and leticia hugger turned on for patient comfort. 9:37:01 Correct patient and procedure confirmed by team. 9:37:02 ECG and BP/O2 sat monitors applied to patient. 9:37:04 Pre-procedure instructions explained to patient. 9:37:04 Pre-op teaching completed and patient verbalized understanding. 9:37:06 Family in waiting room. 9:37:06 Patient NPO since Midnight. 9:37:28 Patient allergic to Other allergyAmoxicillin, Codeine, PCN 9:42:48 Vital chart was started 9:48:45 Baseline sample Acquired. 9:48:47 Rhythm: sinus rhythm 9:48:48 Full Disclosure recording started 9:48:53 Is the patient allergic to Iodine/contrast media? No. 9:48:54 Is patient on blood thinner?Yes 9:48:56 ACC The patient was administered the following blood thiners within the last 24 hours: ACCPlavix 9:48:58 Patient diabetic? No. 9:49:00 Previous problem with sedation/anesthesia? No ? 9:49:01 Snore? Yes 9:49:02 Sleep apnea? No 9:49:02 Deviated septum? No 9:49:03 Opens mouth fully? Yes 9:49:04 Sticks out tongue? Yes 9:49:07 Dentures? Yes ? 9:49:09 Airway obstruction? No ? 9:49:13 Pre procedure: right dorsailis pedis pulse 2+ Normal; easily identifiable; not easily obliterated 9:49:16 Patient pain scale 0/10 ?. 9:49:21 IV patent on arrival in left forearm with 0.9% NaCl at [facility] 9:49:45 Oxygen 2 l/min etCO2 Nasal cannula was administered by Anmol Castro RN; Per physician; 9:49:52 Heparin Flush Bag (1000units/500ml NS) 2 bags added to field was administered by Anmol Castro RN; used for procedure; 9:50:00 0.9% NaCl 100 ml/hr I.V. was administered by Anmol Castro RN; Per physician; 9:50:11 Lidocaine 2% 20ml vial added to field was administered by Anmol Castro RN; used for procedure; 9:52:05 Lab Result : Hemoglobin 12.9 g/dl 9:52:06 Lab Result : Hematocrit 38.7 % 9:52:07 Lab results completed and on chart. 9:52:11 Right groin area was prepped with chlora-prep and draped in sterile fashion 9:52:12 Alarms reviewed by R. N. 9:52:12 Sharps counted by scrub and verified by R.N. 9:52:15 ACIST Syringe (12858) opened to sterile field. 9:52:16 Bag Decanter (2002S) opened to sterile field. 9:52:16 Medline Cath Pack ([id number]) opened to sterile field. 9:52:18 ACIST Hand Control (68022) opened to sterile field. 9:52:18 ACIST Manifold (13694) opened to sterile field. 9:52:19 Tegaderm 4 x 4 (1626W) opened to sterile field. 9:52:20 Lab Result : BUN 7 mg/dl 9:52:20 Lab Result : Creatinine 0.7 mg/dl 9:52:20 Lab Result : BUN 7 mg/dl 9:52:20 Lab Result : Creatinine 0.7 mg/dl 9:52:21 DIAGNOSTIC WIRE .035 260cm J wire (755279) opened to sterile field. 9:52:39 CHOICE PT Extra Support 182cm wire ([id number]) opened to sterile field. 9:52:39 SHEATH 6FR [place] (SPQ205) opened to sterile field. 9:52:40 INFLATOR Merit BasixCompak (DR7295) opened to sterile field. 10:08: Zero performed for pressure channel P1 10:: Physician arrived 10:: --------ALL STOP TIME OUT------ :: Final Timeout: patient, procedure, and site verified with staff and physician. All members of the team are in agreement. 10:11:09 Right groin site verified by team. 10:11:11 Physical assessment completed. ASA score P 2 - A patient with mild systemic disease as per Teofilo Evans MD. 10:11:14 Sedation plan: IV Moderate Sedation Medication:Versed, Fentanyl 10:11:51 Fentanyl 50 mcg I.V. was administered by Anmol Castro RN; for sedation; 10:11:57 Versed 1 mg I.V. was administered by Anmol Castro RN; for sedation; 10:16:22 GUIDE 6FR XBLAD 3.5 catheter ([id number]) opened to sterile field. 10:16:23 Harlan [place] IVUS Catheter (03204W) opened to sterile field. 10:23:53 Fentanyl 50 mcg I.V. was administered by Anmol Castro RN; for sedation; 10:23:58 Versed 1 mg I.V. was administered by Anmol Castro RN; for sedation; 10:25:22 Fentanyl 50 mcg I.V. was administered by Anmol Castro RN; for sedation; 10:26:15 Procedure started. 10:26:17 Local anesthetic to right femoral artery with Lidocaine 2% by Teofilo Evans MD.INITIAL ACCESS ONLY 10:27:18 A 6 Fr Short sheath was inserted into the Right Femoral artery 10:27:35 6 Fr xblad 3.5 guide catheter was inserted over the wire 10:27:49 Heparin Bolus 4000 units I.V. was administered by Anmol Castro RN; for anticoagulation; 10:28:02 Fentanyl 50 mcg I.V. was administered by Anmol Castro RN; for sedation; 10:28:50 choice pt es wire advanced. 10:29:04 Wire removed. 10:30:33 GRAPHIX 182cm guide wire ([id number]) opened to sterile field. 10:30:39 graphix wire advanced. 10:31:34 Wire advanced across lesion. 10:32:04 IVUS catheter advanced over wire. 10:32:06 IVUS pass to LMCA lesion performed. 10:32:07 IVUS pass to LAD lesion performed. 10:34:12 Versed 1 mg I.V. was administered by Anmol Castro RN; for sedation; 10:34:59 IVUS catheter removed over wire. 10:37:05 Place stent Inflation Number: 1 A ANNI RX 2.25 x 15 stent ([id number]) was prepped and advanced across the LMCA. The stent was deployed at 23 ALAN for 0:10 (min:sec). 10:37:09 Stent catheter was removed intact over wire. 10:38:20 Inflate balloon Inflation number: 2 A EUPHORA 3.0 x 15 Balloon ([id number]) was prepped and advanced across the LMCA, then inflated to 15 ALAN for 0:10 (min:sec). 10:38:40 Inflation number: 1 The EUPHORA 3.0 x 15 Balloon ([id number]) was reinflated across the Prox LAD, to 15 ALAN for 0:10 (min:sec). 10:38:56 Inflation number: 1 The EUPHORA 3.0 x 15 Balloon ([id number]) was reinflated across the Mid LAD, to 5 ALAN for 0:10 (min:sec). 10:39:13 Inflation number: 2 The EUPHORA 3.0 x 15 Balloon ([id number]) was reinflated across the Prox LAD, to 15 ALAN for 0:10 (min:sec). 10:39:14 Balloon removed over the wire. 10:41:34 Place stent Inflation Number: 3 A ANNI RX 2.25 x 12 stent ([id number]) was prepped and advanced across the Prox LAD. The stent was deployed at 15 ALAN for 0:10 (min:sec). 10:42:15 Stent catheter was removed intact over wire. 10:42:17 Wire removed. 10:42:17 Guide catheter removed. 10:43:38 Nitroglycerin IC/IA 200 mcg I.C. was administered by Teofilo Evans MD; for vasodilation; 10:45:25 WHISPER 190cm wire ([id number]) opened to sterile field. 10:45:43 Nitroglycerin IC/IA 200 mcg I.C. was administered by Teofilo Evans MD; for vasodilation; 10:46:14 Versed 1 mg I.V. was administered by Anmol Castro RN; for sedation; 10:48:31 whisper wire advanced. 10:49:54 The EUPHORA 2.0 x 15 Balloon ([id number]) was advanced and then removed because of failure to cross lesion 10:49:57 Wire removed. 10:49:59 Guide catheter removed. 10:50:53 Integrilin (Bolus 2mg/ml) 4.5 ml I.V. was administered by Anmol Castro RN; for antiplatelet therapy; 10:50:59 Integrilin (Bolus 2mg/ml) 5.5 ml wasted was administered by Anmol Castro RN; for antiplatelet therapy; 10:51:17 EXOSEAL 6Fr (EX600) opened to sterile field. 10:51:25 Sheath removed intact; hemostasis achieved with Exoseal to the Right Femoral artery. 10:51:28 Procedure ended.(Physican Out) 10:52:05 Fluoroscopy time 10.70 minutes. 10:52:08 Flurop Dose total: 760 10:52:08 Fluoroscopy dose: 760 mGy 10:52:12 Contrast amount:Isovue 300 160ml. 10:52:19 Sharps counted by scrub and verified by R.N. 10:52:59 Insertion/operative site no bleeding no hematoma. 10:53:02 Post-op/insertion site Right Femoral artery dressed using a 4 x 4 and Tegaderm. 10:53:06 Post right femoral artery:stable, soft, clean and dry 10:53:08 Post Procedure Pulses reassessed and unchanged 10:53:27 Post-procedure physical assessment completed. ASA score P 2 - A patient with mild systemic disease as per Teofilo Evans MD. 10:53:31 Post procedure rhythm: sinus rhythm 10:53:33 Estimated blood loss: 10 ml 10:53:34 Post procedure instruction explained to patient.Patient verbalizes understanding. 10:53:34 Patient needs reinforcement of post procedure teaching. 10:54:18 Procedure type changed to Cath procedure, Diagnostic procedure, FFR/IVUS, Intra-Coronary IVUS Initial, Intra-Coronary IVUS Additional, Sedation Charges, Moderate Sedation up to 30 minutes, PCI procedure, Coronary Stent, Coronary Stent Initial x2 10:54:47 Procedure and supply charges have been captured, reviewed, submitted and are correct. 10:55:06 Procedure Complication : No complications 10:55:08 Vital chart was stopped 10:55:09 See physician's report for complete and final results. 10:55:11 Report given to CVICU. 10:55:13 Patient transfered to CVICU with Stretcher. 10:55:15 Procedure ended. 10:55:15 Full Disclosure recording stopped 10:55:24 FEMSTOP Gold ([id number]) opened to sterile field. 11:00:35 Integrilin Drip (75mg/100ml) 8 ml/hr I.V. drip was administered by Anmol Castro RN; for antiplatelet therapy; 11:01:08 Femstop placed over the right femoral artery at 133 mmHg. Hemostasis achieved. 11:01:16 End room use (Document Last) Intervention Summary Intervention Notes Time ActionType Lesion and Equipment Used Action# Pressure Duration Attributes 10:37:05 Place stent LMCA ANNI RX 2.25 x 1 23 00:10 15 stent ([id number]) 10:38:20 Inflate LMCA EUPHORA 3.0 x 2 15 00:10 balloon 15 Balloon ([id number]) 10:38:40 Reinflate Prox LAD EUPHORA 3.0 x 1 15 00:10 balloon 15 Balloon ([id number]) 10:38:56 Reinflate Mid LAD EUPHORA 3.0 x 1 5 00:10 balloon 15 Balloon ([id number]) 10:39:13 Reinflate Prox LAD EUPHORA 3.0 x 2 15 00:10 balloon 15 Balloon ([id number]) 10:41:34 Place stent Prox LAD ANNI RX 2.25 x 3 15 00:10 12 stent ([id number]) 10:49:54 Discard EUPHORA 2.0 x Balloon 15 Balloon ([id number]) Device Usage Item Name Manufacture Quantity Catalog Number Hospital Part Current M inimal Lot# / Charge Number Stock Stock Serial# Code ACIST Syringe Acist 1 19610 005182 111518 687765 2 0 (79838) OfficialVirtualDJ Inc Bag Decanter Microtek 1 706400 05039 399509 5 () Medical Inc. Medline Cath Medline 1 [id number] 078298 17166 433986 5 Pack ([id number]) ACIST Hand Acist 1 08942 427736 262492 513492 5 Control Medical (55926) Systems Inc ACIST Manifold Acist 1 16577 026195 291116 306114 5 (84631) Medical Systems Inc Tegaderm 4 x 4 3M 1 1626W 806873 540505 519783 5 (1626W) DIAGNOSTIC St Jeff 1 406915 001373 531388 741119 3 0 WIRE .035 260cm J wire (859950) CHOICE PT Flint 1 [id number] 158338 169224 230208 5 Extra Support Scientific 182cm wire ([id number]) SHEATH 6FR Terumo 1 SGP575 771631 188221 882324 4 0 [place] (BXX947) INFLATOR Merit Merit 1 ZS2196 867838 826167 892764 1 5 Referral.IM (TW3543) GUIDE 6FR Cardinal 1 [id number] 014179 174005 610619 1 0 XBLAD 3.5 Health catheter (05771445) Harlan Harlan 1 97681P 743781 269229 738601 8 [place] IVUS Catheter (35831N) GRAPHIX 182cm [place] 1 [id number] 247615 380639 342807 5 guide wire Scientific ([id number]) ANNI RX 2.25 x Medtronic 1 [id number] 538918 9732163 537294 5 [id number] 15 stent ([id number]) EUPHORA 3.0 x Medtronic 1 [id number] 271966 635811 114926 5 [id number] 15 Balloon ([id number]) ANNI RX 2.25 x Medtronic 1 [id number] 245453 3344742 060807 5 [id number] 12 stent ([id number]) WHISPER 190cm Diamond 1 [id number] 168642 543828 950592 5 wire Vascular (0118034VQ) EUPHORA 2.0 x Medtronic 1 [id number] 687068 440013 231457 5 [id number] 15 Balloon ([id number]) EXOSEAL 6Fr Cardinal 1 EX600 146377 043973 995063 1 0 (EX600) [facility] 1 [id number] 663340 460924 409595 5 ([id number]) Signature Audit [place] Stage Time Signature Unsigned Intra-Procedure 08/28/2018 Lisandro Roach 11:08:09 AM RT(R) Signatures Monitor : Lisandro Roach RT Signature : Date : Time : [id number] [place] [address]
[2018-08-28 09:38] LABS: CALC OSMOLALITY 278 mosm/kg (275-300); CALCIUM 9.7 mg/dL (8.5-10.1); CARBON DIOXIDE 26.9 mmol/L (21.0-32.0); CHLORIDE - SERUM 103 mmol/L (98-107); CREATININE - SERUM 0.7 mg/dL (0.6-1.3); GLUCOSE 104 mg/dL (74-106); POTASSIUM - SERUM 3.9 mmol/L (3.5-5.1); SODIUM 141 mmol/L (136-145); UREA NITROGEN 7 mg/dL (7-18); eGFR NON AFRICAN AMERICAN 85 mL/min (90-120)
[2018-08-28 09:40] LABS: BASOPHILS 0.5 % (0-2); EOSINOPHILS 1.4 % (0-7); HEMATOCRIT 38.7 % (36.0-48.0); HEMOGLOBIN 12.9 g/dL (12-16); IMMATURE GRANULOCYTES 0.2 % (0-5); LYMPHOCYTES 18.5 % (15-50); MCH 31.3 pg (26.0-34.0); MCHC 33.3 g/dL (31.0-37.0); MCV 93.9 fL (80.0-100.0); MEAN PLATELET VOLUME 9.9 fL (7.4-10.4); MONOCYTES 11.1 % (2-11); NEUTROPHILS 68.3 % (40-80); PLATELET COUNT 330 10x3/uL (130-400); RBC 4.12 10x6/uL (4.00-5.40); RDW 13.6 % (11.5-14.5); WBC 12.1 10x3/uL (4.8-10.8)
--- NOTE | 2018-08-28 12:49 | NUR ---
DAUGHTER AT BEDSIDE. UPDATED THAT WILL KEEP PATIENT OVERNIGHT TO MONITOR.
--- NOTE | 2018-08-28 15:04 | NUR ---
PT REPOSITIONED WITH PILLOW UNDER LEFT HIP FOR COMFORT. WATER PROVIDED REQUESTED. MORE AIR RELEASED FROM [facility]STOP.
--- NOTE | 2018-08-28 16:41 | NUR ---
DR CARDOZO BY TO SEE PATIENT.
--- NOTE | 2018-08-28 16:58 | NUR ---
PT IV PUMP ALARMING INFUSION COMPLETE. NURSE WALKED INTO ROOM VISITOR WAS AT PUMP ATTEMPTING TO PRESS BUTTONS. INSTRUCTED NOT TO PUSH BUTTONS. INFUSION SETTINGS CHANGED TO KVO FROM 100ML/HR SINCE STILL HAS INTEGRILIN INFUSING.
--- NOTE | 2018-08-28 17:18 | NUR ---
SPOKE WITH DR CARDOZO. TO RESTART HOME MEDICATIONS
--- NOTE | 2018-08-28 18:00 | NUR ---
PT ASSISTED UP TO BEDSIDE COMMODE. URINATED. WEAK.
--- NOTE | 2018-08-28 18:34 | NUR ---
DAUGHTER INDRA SAENZ [phone]
--- NOTE | 2018-08-28 19:35 | NUR ---
REC'D TO CARE, APPAREL EMBROIDERY DIGITIZER PER FLOWSHEET. PT RESTING QUIETLY, REPORTS "A LITTLE SHOULDER PAIN, BUT NOT BAD". EXPLAINED PRN MED ORDER TO PT, SHE VERBALIZES UNDERSTANDING. CM - NSR. R GROIN SITE C/D/I. IVF INFUSING TO L WRIST PIV, DSG C/D/I - SEE FLOWSHEET. ALARMS ON AND C/L IN REACH.
--- NOTE | 2018-08-28 20:30 | NUR ---
FAMILY AT BS, UPDATE GIVEN AND QUESTIONS ANSWERED. [facility] PASSWORD SET UP.
--- NOTE | 2018-08-28 22:54 | NUR ---
ADMIN PRN DEMEROL - SEE EMAR. VSS. CM - NSR. WILL CONT CLOSE MONIORING.
--- NOTE | 2018-08-28 23:30 | NUR ---
REASSESSMENT PER FLOWSHEET, RESTING WITH EYES CLOSED. AWAKENS EASILY, REPORTS "STILL HURTING, BUT NOT LIKE IT WAS". VSS. NO SIGN OF DISTRESS, BACK TO REST EASILY. ALARMS ON AND C/L IN REACH.
[2018-08-29] VITALS (14 sets, daily range): BP systolic 82–133; BP diastolic 46–72
--- NOTE | 2018-08-29 01:25 | NUR ---
RESTING WITH EYES CLOSED, VSS. NO SIGN OF DISTRESS.
--- NOTE | 2018-08-29 03:12 | NUR ---
REASSESSMENT PER FLOWSHEET, NO ACUTE CHANGES. PT REPOSITIONED UP IN BED, FRESH WATER PER REQUEST. DENIES NEEDS AT THIS TIME. VSS. R GROIN SITE C/D/I. ALARMS ON AND C/L IN REACH.
--- NOTE | 2018-08-29 03:44 | NUR ---
PRN DEMEROL GIVEN PER PT REQUEST. SEE EMAR, DAUGHTER AT BS.
--- NOTE | 2018-08-29 06:15 | NUR ---
UP TO BSC, VOIDED 350ML CLEAR, YELLOW URINE. [facility] PER PT AND BACK TO BED. VSS.
--- NOTE | 2018-08-29 10:16 | NUR ---
LA CARDOZO BY TO SEE PATIENT. PLANS TO DISCHARGE. LET HIM KNOW BP HAS BEEN LOWER. ASKS SHE BE GOTTEN UP TO MAKE SURE TOLERATES ACTIVITY. NO NEW MEDICATION ORDERS.
--- NOTE | 2018-08-29 10:23 | OP ---
PATIENT NAME: JAIRO MORENO MEDICAL RECORD: [id number] :35 LOCATION:[facility] D.CV08 ADMISSION DATE: SURGEON: NORMA CARDOZO MD DATE OF OPERATION: 08/28/2018 PROCEDURES: 1. PTCA stent LAD. 2. PTCA stent left main. 3. Intravascular ultrasound of the LAD. 4. Intravascular ultrasound of left main. 5. Selective coronary angiography. INDICATION: Angina and coronary artery disease. PROCEDURE IN DETAIL: After informed consent was obtained and after a detailed description of the risks, benefits as well as alternative therapies, the patient elected to proceed with angiogram and angioplasty. The right femoral area was prepped and draped in normal sterile fashion. Right femoral artery was cannulated via modified Seldinger technique with placement of 6-Tamazight sheath. All catheters exchanged through this sheath. FINDINGS: The left main has greater than 80% stenosis in the mid vessel confirmed by intravascular ultrasound. This addressed with a 3.0 x 15 [place] stent. LAD had 95% stenosis in the mid vessel. This was addressed with a 2.25 x 12 [place] stent. Result was 0% residual. OVERALL IMPRESSION: Successful PTCA stenting of the left main and LAD, both going from 80% to 95% initial stenosis to 0% residual. TRANSINT:[id number] Voice Confirmation ID: [id number] DOCUMENT ID: [id number] NORMA CARDOZO MD at 1023 CC: [id number] DICTATION DATE: 08/28/18 1052 VOCATIONAL AIDE: 08/28/18 1241 REG [facility] [address] [place] [address]
--- NOTE | 2018-08-29 10:45 | NUR ---
PT ASSISTED UP TO CHAIR. TOLERATED. IS WEAK, BUT STEADY GAIT.
--- NOTE | 2018-08-29 11:14 | NUR ---
PIV REMOVED, TIP INTACT. NO BLEEDING. DAUGHTER AT BEDSIDE TO ASSIST WITH PT GETTING DRESSED.
--- NOTE | 2018-08-29 11:29 | NUR ---
DISCHARGE INSTRUCTIONS PROVIDED TO PT AND DAUGHTER. ESCORTED VIA WHEELCHAIR TO AWAITING VEHICLE.
--- NOTE | 2018-08-31 18:15 | DS ---
PATIENT:JAIRO MORENO :35 MEDICAL RECORD: [id number] DISCHARGE SUMMARY ADMISSION DATE: 08/28/18 DISCHARGE DATE: 08/29/18 DISCHARGE DIAGNOSES: 1. Angina. 2. Coronary artery disease. 3. Percutaneous transluminal coronary angioplasty stent, left main and left anterior descending this admission. HOSPITAL COURSE: Ms. Moreno presents with recurrent anginal symptomatology, found to have disease of the LAD and left main, underwent successful PTCA and stent of the territories, had a thrombus formation in the LAD. She was kept overnight and Integrilin drip was started. She had no ST-T changes and no significant symptomatology. Discharged home the next day to follow up with [facility] in 1 month. TRANSINT:[id number] Voice Confirmation ID: [id number] DOCUMENT ID: [id number] NORMA CARDOZO MD at 1815 CC: [id number] DICTATION DATE: 08/29/18 1020 CREATIVE SERVICES SPECIALIST: 08/29/18 2214 DEP CLI 08/29/18 [address] [place] [address]
== END 2018-08-29 11:29 | disposition home or self-care (01) ==
LOC: D.CATH 08:02 → D.CVICU 11:15 → D.CATH 08-29 11:29
PROVIDERS: Internal Medicine Interventional Cardiology
DX: I25.110 Atherosclerotic heart disease of native coronary artery with unstable angina pectoris (principal)
CPT/HCPCS: 92978; 92979; C9600 ×2

== ENCOUNTER 2018-08-31 18:51 | Observation (INO) | payer MEDICARE, OTHER ==
[~2018-08-31] VITALS: Ht 157.5 cm; Wt 50.0 kg
[2018-08-31 19:12] VITALS: Ht 157.5 cm; Wt 50.0 kg
[2018-08-31 19:24] LABS: BASOPHILS 0.4 % (0-2); EOSINOPHILS 1.9 % (0-7); HEMATOCRIT 30.5 % (36.0-48.0); HEMOGLOBIN 10.2 g/dL (12-16); IMMATURE GRANULOCYTES 0.1 % (0-5); LYMPHOCYTES 19.3 % (15-50); MCH 30.8 pg (26.0-34.0); MCHC 33.4 g/dL (31.0-37.0); MCV 92.1 fL (80.0-100.0); MEAN PLATELET VOLUME 9.5 fL (7.4-10.4); MONOCYTES 10.4 % (2-11); NEUTROPHILS 67.9 % (40-80); PLATELET COUNT 267 10x3/uL (130-400); RBC 3.31 10x6/uL (4.00-5.40); RDW 13.3 % (11.5-14.5); WBC 8.4 10x3/uL (4.8-10.8)
[2018-08-31 19:36] LABS: ALBUMIN 2.7 g/dL (3.4-5.0); BILIRUBIN - TOTAL 0.26 mg/dL (0.2-1.3); CARBON DIOXIDE 23.3 mmol/L (21.0-32.0); POTASSIUM - SERUM 3.3 mmol/L (3.5-5.1); PROTEIN - SERUM 6.4 g/dL (6.4-8.2)
[2018-08-31 19:57] LABS: TROPONIN-I 19.774 ng/mL (0.000-0.060)
[2018-08-31 20:41] VITALS: BP 145/79
--- NOTE | 2018-08-31 20:55 | NUR ---
PT CALLED RN FOR ASSISTANCE TO BATHROOM. PT DAUGHTER ALSO AT BEDSIDE. PT UPON STANDING UNABLE TO WALK C/O NOT FEELING WELL AND NAUSEA. PT INFORMED I WOULD GET BED ROLLE. PT LAID BACK DOWN ON BED. UPON RETURNING WITH BED ROLLE PT NOTED TO HAVE INCREASED SOB AND DIAPHORETIC, INFORMED AND EKG REPEATED
--- NOTE | 2018-08-31 21:00 | NUR ---
AT BEDSIDE. PT C/O CP, NITRO DRIP STARTED. PT PLACED ON NON REBREATHER AND STOCK PARTS INSPECTOR CALLED IN
--- NOTE | 2018-08-31 21:10 | NUR ---
HEPARIN STOPPED AT 2110.
--- NOTE | 2018-08-31 21:19 | NUR ---
PT INTUBATED WITH 7.5 ETT RESP AT BEDSIDE SEE CODE BLUE RECORD
--- NOTE | 2018-08-31 23:38 | NUR ---
[facility] CALLED FOR PT SON DEBORAH PITTMAN REF # [id number]
--- NOTE | 2018-09-01 00:10 | NUR ---
GUIDO HILLMAN HOME AT BEDSIDE. DAUGHTERS ARE TAKING BELONGINGS
== END 2018-08-31 22:00 ==
LOC: D.ER 18:51 → OBSVTIME 19:48 → D.EDHOLD 19:48 → D.M2 20:58 → D.EDHOLD 20:58
PROVIDERS: Family Medicine; ADMIT Internal Medicine Interventional Cardiology
DX: I21.09 ST elevation (STEMI) myocardial infarction involving other coronary artery of anterior wall (principal); I10 Essential (primary) hypertension; J43.9 Emphysema, unspecified; F17.210 Nicotine dependence, cigarettes, uncomplicated